=== PATIENT | female | born 1930 | race Caucasian/White ===

== ENCOUNTER → 2018-07-28 | Outpatient (CLI) | payer MEDICARE, OTHER ==
[~2018-07-28] MED LIST: ASPIRIN325; BYSTOLIC10 MG PO; CHLORDIAZEPOXI1 EAC1 PO; FISH OIL 1,0001 EAC5 PO; NORVASC 5 MG TAB5 MG PO; PERCOCET 5-3251 EACH PO; PREDNISONE 10 M10 MG PO; PRILOSEC 20 MG20 MG PO; ULTRACET TABLET1 TAB PO; VITAMINC500 PO
== END ==
LOC: M.RAD 10:11
DX: Z12.31 Encounter for screening mammogram for malignant neoplasm of breast (principal)

== ENCOUNTER 2020-05-21 12:30 | Inpatient (IN) | payer OTHER ==
[~2020-05-21] VITALS: Ht 162.6 cm; Wt 78.9 kg
[2020-05-21] VITALS (14 sets, daily range): BP systolic 128–189; BP diastolic 72–90
[~2020-05-21 12:30] MED LIST changes: -ASPIRIN325; +ASPIRIN325 PO; -NORVASC 5 MG TAB5 MG PO; +NORVASC5 MG PO; -PRILOSEC 20 MG20 MG PO; +PRILOSEC OTC20 MG PO
[2020-05-21 12:59] LABS: ABSOLUTE BASOPHILS 0.1 thou/uL (0.0-0.2); ABSOLUTE EOSINOPHILS 0.4 thou/uL (0.0-0.7); ABSOLUTE LYMPHOCYTES 1.3 thou/uL (0.8-5.3); ABSOLUTE MONOCYTES 0.7 thou/uL (0.0-1.2); ABSOLUTE NEUTROPHILS 5.8 thou/uL (1.6-8.1); BASOPHILS 1.1 %; EOSINOPHILS 5.2 %; HEMATOCRIT 40.8 % (37.0-47.0); HEMOGLOBIN 13.1 gm/dL (12.0-15.0); LYMPHOCYTES 16.1 %; MCH 26.5 pg (26.0-34.0); MCHC 32.2 g/dL (28.0-37.0); MCV 82.4 fL (80.0-100.0); MONOCYTES 8.1 %; MPV 8.2 fl. (7.2-11.1); NUCLEATED RBCS 0 /100WBC; PLATELET COUNT* 237 thou/uL (150-400); POLYS 69.5 %; RBC 4.95 mil/uL (4.20-5.00); RDW-CV 15.2 % (10.5-14.5); WBC 8.4 thou/uL (4.0-11.0)
[2020-05-21 13:08] LABS: CREATININE 0.8 mg/dL (0.6-1.3); POTASSIUM 3.3 mmol/L (3.5-5.1)
[2020-05-21 13:10] LABS: APTT 22.6 Seconds (25.0-31.3); PROTIME 10.7 Seconds (9.20-11.50)
[2020-05-21 13:21] LABS: ALBUMIN 3.7 g/dL (3.4-5.0); MAGNESIUM 1.8 mg/dL (1.8-2.4); TOTAL BILIRUBIN 0.6 mg/dL (<0.1-1.0); TOTAL PROTEIN 7.5 g/dL (6.4-8.2)
--- NOTE | 2020-05-21 18:18 | CARD ---
[address] [address] CARDIAC CATH REPORT Name: DANNY COURTNEY Room: [address] IN [facility]#: [id number] Admission: 05/21/20 Attend Phys: Jovan Duran MD, Discharge: Date of : 32 Report #: [id number] THIS REPORT FOR: //name// cc: Eve Mcallister Tonja K FNP ~ APPROVED REPORT Study performed: 05/21/2020 13:26:49 Patient Details Patient Status: ED Room #: The patient is a 89 year-old female Event Personnel Jovan Duran Ink Jet Operator, Nadya Cruz RN, Randal Jorge RTR Monitor, Chun Alarcon HAND TOOL FILER Scrub Procedures Performed Left Heart Cath w/or w/o Coronaries [id number] [facility] ANNI Place w/wo Plasty Single LAD [id number] Hemostasis w/ Angioseal; defibrillation x3 Indication STEMI Risk Factors Hypercholesterolemia, Hypertension Admission/Lab Medications/Medications given during procedure Lidocaine Subcut 20 ml, Angiomax IV 11 ml, Angiomax IV 26 ml per hr, Adenosine IC 150 mcg, Adenosine IC 200 mcg, Fentanyl IV 25 mcg, Aggrastat Unknown 7.5 ml, Aggrastat Unknown 7.5 ml, Ticagrelor PO 180 mg, Aspirin PO 162 mg Procedure Narrative The patient was brought emergently to the Cardiac Catheterization Laboratory and was prepped and draped in a sterile manner. The right femoral was infiltrated with 2% Lidocaine subcutaneous anesthesia. A [place] 6 FR sheath was inserted into the right femoral artery. Coronary angiography was performed using coronary diagnostic catheters. The right coronary system was accessed and visualized with a Diagnostic JR4 6Fr catheter. The left coronary system was accessed and visualized with a Diagnostic JL4 6Fr catheter. The left ventricle was accessed and visualized with a Diagnostic Straight Pigtail 6[address] [place] [address] CARDIAC CATH REPORT Name: DANNY COURTNEY Room: [address]#: [id number] Admission: 05/21/20 Attend Phys: Jovan Duran MD, Discharge: Date of : 32 Report #: [id number] catheter. Closure device was deployed with a 6 Fr Angioseal. The patient tolerated the procedure well and there were no complications associated with the procedure. There was no hematoma. Intraoperative Conscious Sedation Sedation start time: 1339 Case end Time: 1456 Fentanyl 25 mcg Fluoro Time: 16.5 minutes Dose: DAP 496709 cGycm2 1796.68 mGy Contrast Type and Amount: Visipaque 360 ml Diagnostic Cath Left Main 30% distal narrowing LAD 40% mid vessel narrowing followed by 100% occlusion of the mid LAD with prominent intraluminal thrombus Circumflex 60% tubular proximal circumflex narrowing with 50% mid first marginal narrowing Right Coronary Large dominant vessel with 40% mid vessel narrowing Left Ventriculography Left Ventriculography was not performed. Hemodynamics The aortic pressure is 157/66 mmHg with a mean of 109 mmHg. The left ventricular pressure is 159/12 mmHg with a mean of mmHg. The left ventricular end diastolic pressure is 25 mmHg. There was no gradient across the aortic valve upon pullback. PCI Technique Lesion Anticoagulation was achieved with Angiomax. Percutaneous coronary intervention was performed on the mid left anterior descending artery segment. The lesion stenosis prior to intervention was 100% with ANNE 0 flow. A 6FR XB 3.5 100CM Guide Catheter was used to engage the Left ostium. A IG: ProwaterFlex 180CM Interventional Guidewire was used to cross the lesion. BALLOON DILATION A Balloon catheter Trek RX 2.25 X 12 was inserted and inflated up to 12.00atm for 11seconds. Additional Inflation: 12.00atm for 8seconds. Additional Inflation: 14.00atm for 6seconds. STENT DEPLOYMENT A drug-eluting stent Radhames RX Stent [id number] was inserted and inflated up to 14.00atm [place] 17seconds. [place] [address] CARDIAC CATH REPORT Name: DANNY COURTNEY Room: [address] IN ..#: [id number] Admission: 05/21/20 Attend Phys: Jovan Duran MD, Discharge: Date of : 32 Report #: [id number] COMMENTS Because of protracted no reflow, microcatheter was placed distally with multiple infusion of 200 mcg of adenosine sequentially until ANNE II-III flow was was restored to the distal circulation. The patient developed ventricular fibrillation on 3 acquired occasions requiring defibrillation with 300 W seconds returning the patient to a sinus rhythm which was maintained after 150 milligrams of amiodarone was infused. Conclusion 1. Acute anterior wall ST segment elevation myocardial infarction 2. Severe coronary artery disease characterized by the following: A 100% mid LAD occlusion with prominent intraluminal thrombus B 30% distal left main coronary narrowing C 60% tubular proximal circumflex narrowing with 50% first marginal narrowing D large dominant right coronary with 40% mid vessel narrowing 2. Moderately severe elevation of left ventricular end diastolic pressure at rest 3. Successful PCI with deployment of a drug-eluting stent at the site of 100% mid LAD occlusion with ANNE II-III flow restored to the distal circulation after multiple boluses of 200 mcg of adenosine through a distally placed microcatheter 4. Successful defibrillation on 3 occasions with 300 W seconds administered with the rhythm reverting from ventricular fibrillation to sinus which was maintained after a bolus of amiodarone 150 mg Recommendations Cardiac Risk Reduction Program Aggressive Medical Therapy Medications Administered Aspirin (any) [place] [address] CARDIAC CATH REPORT Name: DANNY COURTNEY Room: [address] IN ..#: [id number] Admission: 05/21/20 Attend Phys: Jovan Duran MD, Discharge: Date of : 32 Report #: [id number] Diagnostic Cath Approved by: Jovan Duran MD Date/Time: 05/21/2020 18:14:51 <ELECTRONICALLY SIGNED> By: Jovan Duran MD, [facility] 05/21/201817 17 17Jojustin Duran MD, FAC /INF
[2020-05-22] VITALS (18 sets, daily range): BP systolic 133–160; BP diastolic 67–86
[2020-05-22 04:20] LABS: HEMATOCRIT 34.5 % (37.0-47.0); HEMOGLOBIN 11.4 gm/dL (12.0-15.0); MCH 26.4 pg (26.0-34.0); MCV 79.9 fL (80.0-100.0); MPV 8.4 fl. (7.2-11.1); RBC 4.32 mil/uL (4.20-5.00); RDW-CV 14.7 % (10.5-14.5); WBC 11.7 thou/uL (4.0-11.0)
[2020-05-22 04:40] LABS: ALBUMIN 3.2 g/dL (3.4-5.0); ALKALINE PHOSPHATASE 103 U/L (46-116); ANION GAP 10 mmol/L (7-16); BUN 6 mg/dL (7-18); CALCIUM 8.2 mg/dL (8.5-10.1); CHLORIDE 101 mmol/L (98-107); CO2 25 mmol/L (21-32); CREATININE 0.6 mg/dL (0.6-1.3); GLUCOSE 115 mg/dL (70-99); POTASSIUM 3.2 mmol/L (3.5-5.1); SGOT 177 U/L (15-37); SGPT 30 U/L (30-65); SODIUM 136 mmol/L (136-145); TOTAL BILIRUBIN 0.9 mg/dL (<0.1-1.0); TOTAL PROTEIN 6.5 g/dL (6.4-8.2)
[2020-05-22 04:51] LABS: SERUM ASSESSMENT Clear
[2020-05-22 05:02] LABS: CHOLESTEROL 169 mg/dL (<200); HDL CHOLESTEROL 52 mg/dL (>40); LDL CHOLESTEROL 101 mg/dL (<100); TC:HDL 3.3 Ratio (Not establshd); TRIGLYCERIDE 82 mg/dL (<150); VLDL 16 mg/dL (<40)
--- NOTE | 2020-05-22 09:05 | EKG ---
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1930 Requested By: Dung Keller Order Number: [id number] MD: Darron Wood Measurements Intervals [place] Rate: 74 P: 40 [place]: 155 QRS: -25 QRSD: 91 T: 110 QT: 410 QTc: 455 Interpretive Statements Sinus rhythm LVH with secondary repolarization abnormality Inferior infarct, acute (RCA) Anterior infarct, acute Lateral leads are also involved Probable RV involvement, suggest recording right precordial leads Baseline wander in lead(s) I,V2 No previous ECG available for comparison Electronically Signed On 05-22-2020 9:05:31 CLAIMS ADJUDICATOR by Darron Wood [email or web address] <ELECTRONICALLY SIGNED> By: Gary Wood MD, [facility] 05/22/20 0905 40 40 Gary Wood MD, [facility] /EPI
--- NOTE | 2020-05-22 14:53 | 2DMMODE ---
[place] [address] 2 D/M-MODE ECHOCARDIOGRAM Name: DANNY COURTNEY Room: [address] [facility]#: [id number] Admission: 05/21/20 Attend Phys: Slick Andujar Discharge: Date of : 32 Date of Service: 05/22/20 1453 Report #: [id number] THIS REPORT FOR: cc: Eve Mcallister Tonja K FNP Holkins, John M. MD [facility] ~ APPROVED REPORT Study performed: 05/22/2020 10:22:59 EXAM: Comprehensive 2D, Doppler, and color-flow Echocardiogram Patient Location: In-Patient Room #: 007 Status: routine BSA: 1.90 HR: 67 bpm BP: 140/76 mmHg Rhythm: NSR Other Information Study Quality: Good Indications Chest Pain 2D Dimensions IVSd: 12.43 (7-11mm) LVOT Diam: 20.54 (18-24mm) LVDd: 46.62 mm PWd: 10.53 (7-11mm) Ascending Ao: 33.85 (22-36mm) LVDs: 31.68 (25-40mm) Aortic Root: 37.64 mm Volumes Left Atrial Volume (Systole) LA ESV Index: 27.70 mL/m2 Aortic Valve AoV Peak Ajit.: 1.15 m/s AO Peak Gr.: 5.28 mmHg LVOT Max P.33 mmHg AO Mean Gr.: 3.17 mmHg LVOT Mean P.17 mmHg LVOT Max V: 0.76 m/s AO V2 VTI: 23.78 cm LVOT Mean V: 0.50 m/s COSTA (VTI): 2.15 cm2 LVOT V1 VTI: 15.41 [place] [address] 2 D/M-MODE ECHOCARDIOGRAM Name: DANNY COURTNEY Room: [address] IN [facility].#: [id number] Admission: 05/21/20 Attend Phys: Slick Andujar Discharge: Date of : 32 Date of Service: 05/22/20 1453 Report #: [id number] Mitral Valve E/A Ratio: 0.59 MV Decel. Time: 263.14 ms MV E Max Ajit.: 0.49 m/s MV PHT: 76.31 ms MVA (PHT): 2.88 cm2 TDI E/Lateral E': 12.25 E/Medial E': 9.80 Medial E' Ajit.: 0.05 m/s Lateral E' Ajit.: 0.04 m/s Pulmonary Valve PV Peak Ajit.: 0.71 m/s PV Peak Gr.: 1.99 mmHg Tricuspid Valve RAP Estimate: 5.00 mmHg TR Peak Gr.: 21.27 mmHg RVSP: 26.00 mmHg PA Pressure: 26.00 mmHg Left Ventricle The left ventricle is normal size. Regional wall motion abnormalities are noted with distal septal and apical hypo-akinesis. There is normal left ventricular wall thickness. Left ventricular systolic function is mildly decreased. LVEF is 45%. Grade I - abnormal relaxation pattern. Right Ventricle The right ventricle is normal size. The right ventricular systolic function is normal. Atria The left atrium size is normal. The right atrium size is normal. Aortic Valve Mild aortic valve sclerosis. Trace aortic regurgitation. There is no aortic valvular stenosis. Mitral Valve The mitral valve is normal in structure. Trace mitral regurgitation. No evidence of mitral valve stenosis. Tricuspid Valve The tricuspid valve is normal in structure. Mild [place] [address] 2 D/M-MODE ECHOCARDIOGRAM Name: DANNY COURTNEY Room: [address] [place] [facility]#: [id number] Admission: 05/21/20 Attend Phys: Slick Andujar Discharge: Date of : 32 Date of Service: 05/22/20 1453 Report #: [id number] Pulmonic Valve The pulmonary valve is normal in structure. Mild pulmonic regurgitation. Great Vessels The aortic root is normal in size. IVC is normal in size and collapses >50% with inspiration. Pericardium There is no pericardial effusion. <Conclusion> The left ventricle is normal size. There is normal left ventricular wall thickness. Left ventricular systolic function is mildly decreased. LVEF is 45%. Grade I - abnormal relaxation pattern. The right ventricle is normal size. The left atrium size is normal. Mild aortic valve sclerosis. Trace aortic regurgitation. There is no aortic valvular stenosis. The mitral valve is normal in structure. The tricuspid valve is normal in structure. Mild tricuspid regurgitation. IVC is normal in size and collapses >50% with inspiration. There is no pericardial effusion. Regional wall motion abnormalities are noted with distal septal and apical hypo-akinesis. <ELECTRONICALLY SIGNED> By: Jovan Duran MD, FACC 05/22/20 1453 52 145 Jovan Duran MD, FACC /INF
--- NOTE | 2020-05-22 15:41 | EKG ---
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 : 1930 Requested By: Eduardo Courtney Order Number: [id number] Reading MD: Darron Wood Measurements Intervals [place] Rate: 64 P: 54 [place]: 204 QRS: -23 QRSD: 105 T: 18 QT: 428 QTc: 442 Interpretive Statements Sinus rhythm Inferior infarct, old Consider anterior infarct Baseline wander in lead(s) V1 Compared to ECG 05/21/2020 12:41:19 Left ventricular hypertrophy no longer present Early repolarization no longer present Myocardial infarct finding still present Electronically Signed On 05-22-2020 15:41:31 JACKET PREPARER by Darron Wood [email or web address] <ELECTRONICALLY SIGNED> By: Gary Wood MD, FACC 05/22/20 1541 172 172 Gary Wood MD, FAC /EPI
--- NOTE | 2020-05-22 15:42 | EKG ---
[place] [address] ELECTROCARDIOGRAM REPORT Name: DANNY COURTNEY Room: [address] IN M.R.#: [id number] Admission: 05/21/20 Attend Phys: Slick Andujar Discharge: Date of : 34 Date of Service: 05/21/20 2335 Report #: [id number] THIS REPORT FOR: //name// [facility] Test Date: 2020-05-21 Test Time: 23:35:22 Pat Name: DANNY COURTNEY Department: Room: [facility] Gender: F Red Leader: [place] : 1930 Requested By: Jovan Duran Order Number: [id number] Reading MD: Darron Wood Measurements Intervals [place] Rate: 66 P: 50 [place]: 169 QRS: -18 QRSD: 99 T: 21 QT: 495 QTc: 519 Interpretive Statements Sinus rhythm Inferior infarct, old Prolonged QT interval Compared to ECG 05/21/2020 12:41:19 Prolonged QT interval now present Left ventricular hypertrophy no longer present Early repolarization no longer present Myocardial infarct finding still present Electronically Signed On 05-22-2020 15:41:58 SENIOR LINUX UNIX ENGINEER by Darron Wood [email or web address] <ELECTRONICALLY SIGNED> By: Gary Wood MD, FACC 05/22/20 1541 2335 2335 Gary Wood MD, FACC /EPI
[2020-05-23] VITALS (8 sets, daily range): BP systolic 125–145; BP diastolic 60–77
[2020-05-23 03:59] LABS: ALBUMIN 2.9 g/dL (3.4-5.0); CALCIUM 8.2 mg/dL (8.5-10.1); CREATININE 0.8 mg/dL (0.6-1.3); POTASSIUM 3.4 mmol/L (3.5-5.1); TOTAL PROTEIN 5.9 g/dL (6.4-8.2)
[2020-05-23 04:30] LABS: ABSOLUTE BASOPHILS 0.1 thou/uL (0.0-0.2); ABSOLUTE EOSINOPHILS 0.3 thou/uL (0.0-0.7); ABSOLUTE LYMPHOCYTES 0.7 thou/uL (0.8-5.3); ABSOLUTE MONOCYTES 0.9 thou/uL (0.0-1.2); ABSOLUTE NEUTROPHILS 7.5 thou/uL (1.6-8.1); BASOPHILS 0.6 %; HEMATOCRIT 32.4 % (37.0-47.0); HEMOGLOBIN 10.8 gm/dL (12.0-15.0); LYMPHOCYTES 7.7 %; MCH 26.7 pg (26.0-34.0); MCHC 33.4 g/dL (28.0-37.0); MCV 79.9 fL (80.0-100.0); MONOCYTES 9.4 %; MPV 8.6 fl. (7.2-11.1); NUCLEATED RBCS 0 /100WBC; PLATELET COUNT* 204 thou/uL (150-400); POLYS 79.3 %; RBC 4.06 mil/uL (4.20-5.00); RDW-CV 14.9 % (10.5-14.5); WBC 9.5 thou/uL (4.0-11.0)
[2020-05-23] MEDS ORDERED: LISINOPRIL5 MG PO (11:09)
[2020-05-23] MEDS ORDERED: BRILINTA90 MG PO (11:09)
[2020-05-23] MEDS ORDERED: CARVEDILOL3.125 MG PO (11:09)
[2020-05-23] MEDS ORDERED: ASPIR 8181 MG PO (11:09)
== END 2020-05-23 16:50 | disposition home health service (06) | DRG 246 ==
LOC: M.CL 12:30 → M.ERS 12:30 → M.TBA-CV 16:09 → M.2W 16:09 → M.ICU 16:09 → M.2W 05-22 15:35
PROVIDERS: Family Medicine; Internal Medicine; ADMIT Internal Medicine; ATTEND Internal Medicine
PROC: 4A023N7 Measurement of Cardiac Sampling and Pressure, Left Heart, Percutaneous Approach (ICD-10-PCS; principal; 2020-05-21)
PROC: 027034Z Dilation of Coronary Artery, One Artery with Drug-eluting Intraluminal Device, Percutaneous Approach (ICD-10-PCS; principal; 2020-05-21)
PROC: B211YZZ Fluoroscopy of Multiple Coronary Arteries using Other Contrast (ICD-10-PCS; principal; 2020-05-21)
DX: I21.09 ST elevation (STEMI) myocardial infarction involving other coronary artery of anterior wall (principal); I50.41 Acute combined systolic (congestive) and diastolic (congestive) heart failure; D62 Acute posthemorrhagic anemia; E87.6 Hypokalemia; I25.10 Atherosclerotic heart disease of native coronary artery without angina pectoris; I11.0 Hypertensive heart disease with heart failure; Z20.828 Contact with and (suspected) exposure to other viral communicable diseases; E78.5 Hyperlipidemia, unspecified; M19.90 Unspecified osteoarthritis, unspecified site; Z90.49 Acquired absence of other specified parts of digestive tract; Z90.710 Acquired absence of both cervix and uterus; Z88.8 Allergy status to other drugs, medicaments and biological substances; Z79.82 Long term (current) use of aspirin; Z79.899 Other long term (current) drug therapy

== ENCOUNTER 2020-08-21 13:27 | Inpatient (IN) | payer OTHER ==
[~2020-08-21] VITALS: Ht 170.2 cm; Wt 72.6 kg
[~2020-08-21 13:27] MED LIST changes: +ASPIR 8181 MG PO; +BRILINTA90 MG PO; +CARVEDILOL3.125 MG PO; +LISINOPRIL5 MG PO
[2020-08-21 13:35] VITALS: BP 183/110
[2020-08-21] MEDS ORDERED: VITAMIN D-40010 MCG PO (13:42)
[2020-08-21 14:04] LABS: ABSOLUTE BASOPHILS 0.1 thou/uL (0.0-0.2); ABSOLUTE EOSINOPHILS 0.3 thou/uL (0.0-0.7); ABSOLUTE LYMPHOCYTES 0.8 thou/uL (0.8-5.3); ABSOLUTE MONOCYTES 0.5 thou/uL (0.0-1.2); ABSOLUTE NEUTROPHILS 6.4 thou/uL (1.6-8.1); BASOPHILS 1.1 %; EOSINOPHILS 3.5 %; HEMATOCRIT 34.8 % (37.0-47.0); HEMOGLOBIN 11.3 gm/dL (12.0-15.0); LYMPHOCYTES 9.5 %; MCH 25.9 pg (26.0-34.0); MCHC 32.5 g/dL (28.0-37.0); MCV 79.7 fL (80.0-100.0); MONOCYTES 6.7 %; MPV 8.5 fl. (7.2-11.1); NUCLEATED RBCS 0 /100WBC; PLATELET COUNT* 237 thou/uL (150-400); POLYS 79.2 %; RBC 4.37 mil/uL (4.20-5.00); RDW-CV 16.3 % (10.5-14.5); WBC 8.1 thou/uL (4.0-11.0)
[2020-08-21 14:09] LABS: CREATININE 0.8 mg/dL (0.6-1.3); POTASSIUM 3.5 mmol/L (3.5-5.1)
[2020-08-21 14:18] LABS: ALBUMIN 3.8 g/dL (3.4-5.0); DIRECT BILIRUBIN 0.3 mg/dL (<0.1-0.3); MAGNESIUM 1.8 mg/dL (1.8-2.4); PHOSPHORUS* 3.5 mg/dL (2.5-4.9); TOTAL BILIRUBIN 1.1 mg/dL (<0.1-1.0); TOTAL PROTEIN 7.4 g/dL (6.4-8.2)
[2020-08-21 14:59] LABS: BE -2.7 mmol/L (-2 to +3); PCO2 31.4 mmHg (35.0-45.0); PO2 111.1 mmHg (75.0-100.0); pH 7.437 (7.340-7.450)
[2020-08-21 15:59] LABS: URINE BILIRUBIN NEGATIVE (Negative); URINE BLOOD NEGATIVE (Negative); URINE CLARITY CLEAR; URINE COLOR YELLOW; URINE GLUCOSE-RANDOM NEGATIVE (Negative); URINE KETONES 1+ (Negative); URINE LEUKOCYTES NEGATIVE (Negative); URINE NITRITE NEGATIVE (Negative); URINE PROTEIN NEGATIVE (Negative); URINE SPECIFIC GRAVITY 1.025 (1.005-1.030)
--- NOTE | 2020-08-21 16:47 | 2DMMODE ---
[place] [address] 2 D/M-MODE ECHOCARDIOGRAM Name: DANNY COURTNEY Room: [place] [address] ADM IN .R.#: [id number] Admission: 08/21/20 Attend Phys: Marlen Abreu, Discharge: Date of : 34 Date of Service: 08/21/20 1646 Report #: [id number] THIS REPORT FOR: cc: Eve Mcallister Tonja K FNP Liston, Michael J. MD [facility] ~ APPROVED REPORT Study performed: 08/21/2020 15:54:45 EXAM: Limited 2D, Doppler, and color-flow Echocardiogram Patient Location: In-Patient Room #: ER Status: routine BSA: 1.84 HR: 98 bpm BP: 172/97 mmHg Rhythm: NSR Other Information Study Quality: Good Indications Dyspnea Tricuspid Valve RAP Estimate: 5.00 mmHg TR Peak Gr.: 41.00 mmHg RVSP: 46.00 mmHg PA Pressure: 46.00 mmHg Left Ventricle Left ventricle is mildly dilated. There is mild global hypokinesis with akinesis of the apex and mid to apical portions of the anterior and anteroseptal ji. Mild concentric left ventricular hypertrophy. Left ventricular systolic function is moderately decreased. LVEF is 30-35%. Right Ventricle The right ventricle is normal size. The right ventricular systolic function is normal. Atria The left atrium size is normal. The right atrium [place] [address] 2 D/M-MODE ECHOCARDIOGRAM Name: ROBBIE COURTNEYCYNTHIA Ocampo Room: [address] IN .R.#: [id number] Admission: 08/21/20 Attend Phys: Marlen Abreu, Discharge: Date of : 32 Date of Service: 08/21/20 1646 Report #: [id number] Aortic Valve The aortic valve is normal in structure. No aortic regurgitation is present. Mitral Valve The mitral valve is normal in structure. Mild mitral regurgitation. Tricuspid Valve The tricuspid valve is normal in structure. Trace tricuspid regurgitation. Moderate pulmonary hypertension. Pulmonic Valve The pulmonary valve is normal in structure. Great Vessels The aortic root is normal in size. IVC is normal in size and collapses >50% with inspiration. Pericardium There is no pericardial effusion. Left pleural effusion. <Conclusion> Left ventricle is mildly dilated. Mild concentric left ventricular hypertrophy. Left ventricular systolic function is moderately decreased. LVEF is 30-35%. There is mild global hypokinesis with akinesis of the apex and mid to apical portions of the anterior and anteroseptal ji. Mild mitral regurgitation. Trace tricuspid regurgitation. Moderate pulmonary hypertension. Left pleural effusion. IVC is normal in size and collapses >50% with inspiration. <ELECTRONICALLY SIGNED> By: Sahil Robertson MD, FACC 08/21/201645 45 45 Sahil Robertson MD, FACC /INF
--- NOTE | 2020-08-21 17:43 | EKG ---
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: : 1930 Requested By: Jamey Darnell Order Number: [id number] MD: Sahil Robertson Measurements Intervals [place] Rate: 98 P: 44 [place]: 133 QRS: -3 QRSD: 107 T: 114 QT: 362 QTc: 463 Interpretive Statements Wandering atrial pacemaker Nonspecific T wave inversion diffusely Compared to ECG 05/21/2020 23:35:22 Myocardial infarct finding no longer present Prolonged QT interval no longer present Electronically Signed On 08-21-2020 17:43:48 CYANIDE CASE HARDENER by Sahil Robertson [email or web address] <ELECTRONICALLY SIGNED> By: Sahil Robertson MD, FACC 08/21/20 1743 1344 1344 Sahil Robertson MD, FACC /EPI
[2020-08-21 18:00] VITALS: BP 107/75
[2020-08-22 04:00] VITALS: BP 142/76
[2020-08-22 08:00] VITALS: BP 150/87
[2020-08-22 09:14] LABS: CREATININE 0.8 mg/dL (0.6-1.3); POTASSIUM 3.6 mmol/L (3.5-5.1)
[2020-08-22 12:27] VITALS: BP 128/77
[2020-08-22 20:00] VITALS: BP 147/77
[2020-08-23 00:50] VITALS: BP 123/68
[2020-08-23 04:00] VITALS: BP 142/70
[2020-08-23 04:26] LABS: HEMATOCRIT 32.6 % (37.0-47.0); HEMOGLOBIN 10.6 gm/dL (12.0-15.0); MCH 26.1 pg (26.0-34.0); MCHC 32.4 g/dL (28.0-37.0); MCV 80.6 fL (80.0-100.0); MPV 8.8 fl. (7.2-11.1); RBC 4.05 mil/uL (4.20-5.00); RDW-CV 16.4 % (10.5-14.5); WBC 7.6 thou/uL (4.0-11.0)
[2020-08-23 04:41] LABS: CALCIUM 9.1 mg/dL (8.5-10.1); POTASSIUM 3.8 mmol/L (3.5-5.1)
[2020-08-23 08:00] VITALS: BP 145/75
[2020-08-23 11:50] VITALS: BP 90/52
[2020-08-23 16:00] VITALS: BP 111/69
[2020-08-23 19:50] VITALS: BP 124/63
[2020-08-24] VITALS: BP 120/60
[2020-08-24 04:00] VITALS: BP 125/66
[2020-08-24 04:41] LABS: HEMATOCRIT 31.9 % (37.0-47.0); HEMOGLOBIN 10.4 gm/dL (12.0-15.0); MCH 26.2 pg (26.0-34.0); MCHC 32.7 g/dL (28.0-37.0); MCV 80.2 fL (80.0-100.0); MPV 8.8 fl. (7.2-11.1); RBC 3.98 mil/uL (4.20-5.00); RDW-CV 16.2 % (10.5-14.5); WBC 7.9 thou/uL (4.0-11.0)
[2020-08-24 05:12] LABS: CALCIUM 9.2 mg/dL (8.5-10.1); CREATININE 1.5 mg/dL (0.6-1.3); POTASSIUM 4.1 mmol/L (3.5-5.1)
[2020-08-24 08:00] VITALS: BP 127/74
[2020-08-24] MEDS ORDERED: CARVEDILOL12.5 MG PO (09:00)
[2020-08-24] MEDS ORDERED: COZAAR 50 MG TA50 M1 PO (09:00)
[2020-08-24 11:46] VITALS: BP 127/74
[2020-08-24] MEDS ORDERED: KLOR-CON M2020 MEQ PO (12:47)
[2020-08-24] MEDS ORDERED: FUROSEMIDE 40 M40 MG PO (12:47)
[2020-08-24 15:29] VITALS: BP 127/74
== END 2020-08-24 13:50 | disposition home or self-care (01) | DRG 292 ==
LOC: M.ERS 13:27 → M.TBA-ER 15:28 → M.2W 15:28
PROVIDERS: Emergency Medicine; Family Medicine; Internal Medicine; Registered Nurse; ADMIT Internal Medicine; ATTEND Internal Medicine
DX: I11.0 Hypertensive heart disease with heart failure (principal); N17.9 Acute kidney failure, unspecified; E86.0 Dehydration; I50.43 Acute on chronic combined systolic (congestive) and diastolic (congestive) heart failure; I25.5 Ischemic cardiomyopathy; Z20.822 Contact with and (suspected) exposure to COVID-19; I25.10 Atherosclerotic heart disease of native coronary artery without angina pectoris; T50.905A Adverse effect of unspecified drugs, medicaments and biological substances, initial encounter; E78.5 Hyperlipidemia, unspecified; M19.90 Unspecified osteoarthritis, unspecified site; Z90.49 Acquired absence of other specified parts of digestive tract; Z90.710 Acquired absence of both cervix and uterus; Z98.49 Cataract extraction status, unspecified eye; Z88.6 Allergy status to analgesic agent; Z88.8 Allergy status to other drugs, medicaments and biological substances; I25.2 Old myocardial infarction; Z95.5 Presence of coronary angioplasty implant and graft; Z79.82 Long term (current) use of aspirin; Z79.899 Other long term (current) drug therapy; Y92.89 Other specified places as the place of occurrence of the external cause

== ENCOUNTER → 2020-09-24 | Outpatient (CLI) | payer OTHER ==
[~2020-09-24] MED LIST changes: +CARVEDILOL12.5 MG PO; +COZAAR 50 MG TA50 M1 PO; +FUROSEMIDE 40 M40 MG PO; +KLOR-CON M2020 MEQ PO; +VITAMIN D-40010 MCG PO
--- NOTE | 2020-09-24 11:25 | 2DMMODE ---
[place] [address] 2 D/M-MODE ECHOCARDIOGRAM Name: DANNY COURTNEY Terrence Room: [facility]#: [id number] Admission: 09/24/20 Attend Phys: Terrence Leija Discharge: Date of : 34 Date of Service: 09/24/20 1125 Report #: [id number] THIS REPORT FOR: cc: Eve Mcallister Tonja K FNP Blick, David R. MD [facility] ~ APPROVED REPORT Study performed: 09/24/2020 09:42:09 EXAM: Comprehensive 2D, Doppler, and color-flow Echocardiogram Patient Location: Out-Patient BSA: 1.80 HR: 68 bpm BP: 130/70 mmHg Other Information Study Quality: Fair Indications CAD Cardiomyopathy Hypertension/HDD 2D Dimensions IVSd: 14.23 (7-11mm) LVOT Diam: 20.34 (18-24mm) LVDd: 31.54 mm PWd: 11.70 (7-11mm) Ascending Ao: 32.10 (22-36mm) LVDs: 24.71 (25-40mm) Aortic Root: 28.88 mm Volumes Left Atrial Volume (Systole) LA ESV Index: 17.50 mL/m2 Aortic Valve AoV Peak Ajit.: 0.78 m/s AO Peak Gr.: 2.45 mmHg LVOT Max P.02 mmHg AO Mean Gr.: 1.56 mmHg LVOT Mean P.96 mmHg LVOT Max V: 0.71 m/s AO V2 VTI: 14.64 cm LVOT Mean V: 0.45 m/s COSTA (VTI): 3.24 cm2 LVOT V1 VTI: 14.57 [place] [address] 2 D/M-MODE ECHOCARDIOGRAM Name: DANNY COURTNEY Room: [facility]#: [id number] Admission: 09/24/20 Attend Phys: Terrence Leija Discharge: Date of : 34 Date of Service: 09/24/20 1125 Report #: [id number] Mitral Valve MV Decel. Time: 302.50 ms MV PHT: 87.73 ms MVA (PHT): 2.51 cm2 TDI Medial E' Ajit.: 0.05 m/s Lateral E' Ajit.: 0.05 m/s Pulmonary Valve PV Peak Ajit.: 0.72 m/s PV Peak Gr.: 2.08 mmHg Left Ventricle The left ventricle is normal size. akinesis of the distal anteroseptal wall and apex Mild concentric left ventricular hypertrophy. Left ventricular ejection fraction is moderately decreased. LVEF is 35-40%. Grade I - abnormal relaxation pattern. Right Ventricle The right ventricle is normal size. The right ventricular systolic function is normal. Atria The left atrium size is normal. The right atrium size is normal. Aortic Valve The aortic valve is normal in structure. Mild aortic regurgitation. There is no aortic valvular stenosis. Mitral Valve The mitral valve is normal in structure. Mild mitral annular calcification. There is trace mitral valve regurgitation noted. No evidence of mitral valve stenosis. Tricuspid Valve The tricuspid valve is normal in structure. There is trace tricuspid valve regurgitation noted. Pulmonic Valve The pulmonary valve is normal in structure. Mild pulmonic regurgitation[place] [address] 2 D/M-MODE ECHOCARDIOGRAM Name: SHERWINDANNY M Room: [facility]#: [id number] Admission: 09/24/20 Attend Phys: Terrence Leija Discharge: Date of : 34 Date of Service: 09/24/20 1125 Report #: [id number] The aortic root is normal in size. IVC is normal in size and collapses >50% with inspiration. Pericardium There is no pericardial effusion. <Conclusion> Mild concentric left ventricular hypertrophy. akinesis of the distal anteroseptal wall and apex LVEF is 35-40%. <ELECTRONICALLY SIGNED> By: Eduardo Courtney MD, [facility] 09/24/20 1125 24 24 Eduardo Cuortney MD, FACC /INF
== END ==
LOC: M.CRD 09:49
PROVIDERS: ATTEND Internal Medicine
DX: I08.8 Other rheumatic multiple valve diseases (principal); I25.10 Atherosclerotic heart disease of native coronary artery without angina pectoris; I10 Essential (primary) hypertension; I25.5 Ischemic cardiomyopathy

== ENCOUNTER → 2021-03-21 | Outpatient (CLI) | payer OTHER ==
--- NOTE | 2021-03-21 15:58 | CARDNUC ---
[place] [address] CARDIAC NUCLEAR IMAGING REPORT Name: DANNY COURTNEY Room: [facility]#: [id number] Admission: 03/21/21 Attend Phys: Terrence Leija Discharge: Date of : 34 Date of Service: 03/21/21 1558 Report #: [id number] THIS REPORT FOR: cc: Eve Mcallister Tonja K FNP [place], Michael J. MD [facility] ~ APPROVED REPORT Imaging Protocol: Rest Tc-99m/Stress Tc-99m 1 day Study performed: 03/21/2021 12:45:00 Indication: Dyspnea Patient Location: Out-Patient Stress Tech: lucía padron Stress Nurse: Kathie Pineda RN NM Tech:ANOOP Saldivar Ht: 5 ft 5 in Wt: 158 lbs BSA: 1.79 m2 BMI: 26.28 Medical History Medical History: CAD s/p UT, CAD s/p stent, CHF, HTN, Hyperlipidemia Medications: asa-81, brilinta, carvedilol, lasix, losartan, ntg Allergies: celecoxib, lipitor,vicoden Cardiac Risk Factors: Age, HTN, Hyperlipidemia Previous Cardiac Procedures: PCI, Myocardial infarction Exercise History: Sedentary Meds Held (24 hrs): carvedilol Resting Data Rest SPECT myocardial perfusion imaging was performed in supine position 30 minutes following the intravenous injection of 9.1 mCi of Tc-99m Sestamibi. Time of rest injection: 1300 Date: 03/21/2021 The images were gated to evaluate regional wall motion and calculate left ventricular ejection fraction. Administration Route: IV Administration Site: Right AC Pharmacologic Stress Pharmacologic stress test was performed by injecting Regadenoson 0.4 mg IV push over 10-15 seconds immediately [place] [address] CARDIAC NUCLEAR IMAGING REPORT Name: DANNY COURTNEY Room: [facility]#: [id number] Admission: 03/21/21 Attend Phys: Terrence Leija Discharge: Date of : 34 Date of Service: 03/21/21 1558 Report #: [id number] injection of 35.6 mCi of Tc-99m Sestamibi. Time of stress injection: 1400 Date: 03/21/2021 Administration Route: IV Administration Site: Right AC Gated Stress SPECT was performed 40 minutes after stress injection. The images were gated to evaluate regional wall motion and calculate left ventricular ejection fraction. Stress only was performed in the Supine position. Stress Test Details Stress Test: Pharmacologic stress testing performed using 0.4 mg of regadenoson per 5 mL given IV over 10 seconds. HR Max Heart Rate (APMHR): 132 bpm Resting HR: 80 bpm Target HR (85% APMHR): 112 bpm Max HR Achieved: 109 bpm % of APMHR: 82 Recovery HR: 102 bpm BP Resting BP: 164/91 mmHg Max BP: 180/91 mmHg Recovery BP: 170/90 mmHg ECG Resting ECG: Sinus Rhythm Stress ECG: Sinus Tachycardia ST Change: None Arrhythmia: None Recovery ECG: Sinus Rhythm Recovery ST Change: None Recovery Arrhythmia: None Clinical Patient tolerated Lexiscan infusion without significant cardiac symptoms. Stress ECG Conclusion Baseline twelve-lead EKG shows sinus rhythm without significant ST segment or T wave abnormality. EKGs obtained during and post Lexiscan infusion show sinus rhythm and sinus tachycardia without significant ST segment or T wave changes when compared to baseline. There were no stress-induced arrhythmias. Study Quality Study: [place] [address] CARDIAC NUCLEAR IMAGING REPORT Name: SHERWINDANNYCYNTHIA MARTIN Room: [facility]#: [id number] Admission: 03/21/21 Attend Phys: Terrence Leija Discharge: Date of : 34 Date of Service: 03/21/21 1558 Report #: [id number] Artifact: No artifact Study Data At rest, the left ventricular ejection fraction was 35%.. Post stress, the left ventricular ejection was 27%.. TID = 106. Perfusion Perfusion images show a fixed apical inferoapical defect consistent with prior infarct. There is a moderate size reversible defect involving the basal inferior wall. Wall Motion There is significant akinesis of the apex. There is hypokinesis of the septum and inferior ji. Global LV systolic function is severely decreased. Nuclear Conclusion ECG Findings: negative for ischemia Clinical Findings: negative for ischemia Nuclear Findings: positive for ischemia Exercise Capacity: not assessed Left Ventricular Function: abnormal Risk Study: high Perfusion images suggest prior apical infarct. Additionally there is evidence of a small reversible defect in the basal portion inferior wall. Global LV systolic function is severely decreased with wall motion abnormalities as outlined above. This is a high risk study. <Conclusion> Baseline twelve-lead EKG shows sinus rhythm without significant ST segment or T wave abnormality. EKGs obtained during and post Lexiscan infusion show sinus rhythm and sinus tachycardia without significant ST segment or T wave changes when compared to baseline. There were no stress-induced arrhythmias. <ELECTRONICALLY SIGNED> By: Sahil Robertson MD, FACC 03/21/21 1558 1558 1558 Sahil Robertson MD, FACC /INF
== END ==
LOC: M.NUC 10-17 14:57
PROVIDERS: ATTEND Internal Medicine
DX: I25.10 Atherosclerotic heart disease of native coronary artery without angina pectoris (principal); I25.2 Old myocardial infarction

== ENCOUNTER 2021-05-02 10:39 | Observation (INO) | payer OTHER ==
[~2021-05-02] VITALS: Ht 170.2 cm; Wt 71.2 kg
[2021-05-02] VITALS (13 sets, daily range): BP systolic 128–156; BP diastolic 62–89
--- NOTE | ~2021-05-02 | H ---
[address] [address] HISTORY AND PHYSICAL Name: DANNY COURTNEY Room: [address] Lina Alexis#: [id number] Admission: 05/02/21 Attend Phys: Jovan Duran MD, Discharge: 05/03/21 Date of : 34 Report #: [id number] THIS REPORT FOR: cc: Eve Mcallister Tonja K FNP [facility],Medical Records Staff ~ Please refer to the History and Physical performed in the physician's office. By: 0845Medical Records Staff [facility] /[place]
[2021-05-02 12:13] LABS: HEMATOCRIT 35.8 % (37.0-47.0); HEMOGLOBIN 11.9 gm/dL (12.0-15.0); MCH 27.4 pg (26.0-34.0); MCHC 33.1 g/dL (28.0-37.0); MCV 82.7 fL (80.0-100.0); MPV 8.2 fl. (7.2-11.1); RBC 4.34 mil/uL (4.20-5.00); RDW-CV 14.7 % (10.5-14.5)
[2021-05-02 12:26] LABS: APTT 24.3 Seconds (25.0-31.3); PROTIME 10.5 Seconds (9.20-11.50)
[2021-05-02 12:27] LABS: ANION GAP 9 mmol/L (7-16); BUN 25 mg/dL (7-18); CALCIUM 9.2 mg/dL (8.5-10.1); CHLORIDE 107 mmol/L (98-107); CO2 27 mmol/L (21-32); CREATININE 1.1 mg/dL (0.6-1.3); GLUCOSE 106 mg/dL (70-99); POTASSIUM 4.2 mmol/L (3.5-5.1); SODIUM 143 mmol/L (136-145)
[2021-05-02 12:32] LABS: ALBUMIN 3.9 g/dL (3.4-5.0); ALKALINE PHOSPHATASE 98 U/L (46-116); SGOT 12 U/L (15-37); SGPT 18 U/L (30-65); TOTAL BILIRUBIN 0.6 mg/dL (<0.1-1.0); TOTAL PROTEIN 7.7 g/dL (6.4-8.2)
[2021-05-02 12:47] LABS: CHOLESTEROL 185 mg/dL (<200); HDL CHOLESTEROL 72 mg/dL (>40); LDL CHOLESTEROL 93 mg/dL (<100); TC:HDL 2.6 Ratio (Not establshd); TRIGLYCERIDE 103 mg/dL (<150); VLDL 21 mg/dL (<40)
[2021-05-02 12:49] LABS: SERUM ASSESSMENT Clear
[2021-05-02] MEDS ORDERED: FUROSEMIDE 40 M40 MG PO (16:32)
[2021-05-02] MEDS ORDERED: KLOR-CON M2020 MEQ PO (16:33)
[2021-05-03] VITALS (7 sets, daily range): BP systolic 124–145; BP diastolic 55–72
[2021-05-03 04:09] LABS: HEMATOCRIT 31.7 % (37.0-47.0); HEMOGLOBIN 10.5 gm/dL (12.0-15.0); MCH 27.4 pg (26.0-34.0); MCHC 33.1 g/dL (28.0-37.0); MCV 82.7 fL (80.0-100.0); MPV 8.4 fl. (7.2-11.1); RBC 3.83 mil/uL (4.20-5.00); RDW-CV 14.8 % (10.5-14.5); WBC 7.7 thou/uL (4.0-11.0)
[2021-05-03 04:35] LABS: ALBUMIN 3.1 g/dL (3.4-5.0); CALCIUM 8.7 mg/dL (8.5-10.1); POTASSIUM 3.9 mmol/L (3.5-5.1); TOTAL BILIRUBIN 0.7 mg/dL (<0.1-1.0); TOTAL PROTEIN 6.3 g/dL (6.4-8.2)
[2021-05-03] MEDS ORDERED: NITROGLYCERIN0.4 MG SUBLING (09:20)
--- NOTE | 2021-05-03 17:27 | EKG ---
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1930 Requested By: Sahil Robertson Order Number: [id number] Reading MD: Sahil Robertson Measurements Intervals [place] Rate: 84 P: 52 [place]: 137 QRS: -23 QRSD: 108 T: 129 QT: 381 QTc: 451 Interpretive Statements Sinus rhythm LVH with secondary repolarization abnormality Inferior infarct, old Compared to ECG 08/21/2020 13:44:32 Left ventricular hypertrophy now present Early repolarization now present Myocardial infarct finding now present Electronically Signed On 05-03-2021 17:27:39 CDT by Sahil Robertson [email or web address] <ELECTRONICALLY SIGNED> By: Sahil Robertson MD, FACC 05/03/21 1727 9 9 Sahil Robertson MD, FACC /EPI
--- NOTE | 2021-05-03 17:45 | D ---
[address] [address] DISCHARGE SUMMARY Name: DANNY COURTNEY Room: [address] Lina Alexis#: [id number] Admission: 05/02/21 Attend Phys: Jovan Duran MD, Discharge: 05/03/21 Date of : 32 Report #: [id number] THIS REPORT FOR: cc: Eve Mcallister Tonja K FNP [place]on, Michael J. MD [facility] ~ cc: Jovan Duran MD [facility], Eve Mcallister DISCHARGE DIAGNOSES: 1. Unstable angina. 2. Coronary artery disease with previous intervention. 3. Ischemic cardiomyopathy. 4. Essential hypertension. PROCEDURES DURING HOSPITALIZATION: 1. Left heart catheterization. 2. Coronary angiography. 3. Left ventriculography. 4. Percutaneous coronary intervention with drug-eluting stent placement to the mid right coronary arteries. HOSPITAL COURSE: The patient was brought to the hospital after having abnormal outpatient stress test suggesting inferobasilar ischemia. The patient had a history of coronary artery disease with previous drug-eluting stent placement to the mid LAD in the setting of acute anterior wall myocardial infarction. Stress testing suggested apical infarct. In addition, some basal inferior wall ischemia. On catheterization, the patient was found to have high-grade stenosis in the calcified mid right coronary artery. The patient underwent drug-eluting stent placement to the mid LAD without complication. The patient had a 3.25 x 15 mm stent placed, postdilated to approximately 3.7 mm. The patient was noted to have a step up at the margin of the stent, so an additional 8 mm 3.25 stent was placed and again postdilated to approximately 3.7 mm. At the termination of the procedure, the area was free of any significant stenosis. The patient tolerated the procedure well without complication. Ventriculography showed apical akinesis with an EF of approximately 35-40%. The stents placed in the LAD previously were widely patent. No other occlusive disease was found. DISCHARGE MEDICATIONS: Will include aspirin 81 mg daily, carvedilol 12.5 mg b.i.d., vitamin D 1000 units daily, fish oil 1000 mg daily, losartan 50 mg daily, Protonix 40 mg daily, Brilinta 90 mg b.i.d., Lasix 40 mg p.r.n., potassium chloride 20 [place] [address] DISCHARGE SUMMARY Name: DANNY COURTNEY Room: [address]#: [id number] Admission: 05/02/21 Attend Phys: Jovan Duran MD, Discharge: 05/03/21 Date of : 34 Report #: [id number] DISPOSITION: The patient will follow up in the Cardiology office in 4 weeks. <ELECTRONICALLY SIGNED> By: Sahil Robertson MD, [facility] 05/03/21 1745 0811 [id number] Diegoy[facility]elis Robertson MD, FACC /nt
--- NOTE | 2021-05-06 15:53 | CARD ---
[address] [address] CARDIAC CATH REPORT Name: DANNY COURTNEY Room: [address] Lina Alexis#: [id number] Admission: 05/02/21 Attend Phys: Jovan Duran MD, Discharge: 05/03/21 Date of : 32 Report #: [id number] THIS REPORT FOR: cc: Eve Mcallister Tonja K FNP Holkins, John M. MD [facility] ~ APPROVED REPORT Study performed: 05/02/2021 12:12:31 Patient Details Patient Status: Out-Patient Room #: The patient is a 89 year-old female Event Personnel Sahil Robertson Ladderman, Debbie Pruett RN RN, Jossie Hernández Scrub, Gabriella Vizcaino RTR Monitor, Jovan Duran Molding Machine Setter Procedures Performed Art Access - R femoral artery Left Heart Cath w/or w/o Coronaries ANNI Place w/wo Plasty Single RCA Indication Positive stress test Risk Factors Hypercholesterolemia, Coronary Artery Disease Previous Procedures/Diagnoses Previous PCI, Previous NM Admission/Lab Medications/Medications given during procedure Lidocaine Subcut 12 ml, Oxygen Nasal cannula 2 l per min, 0.9% Sodium Chloride IV 100 ml per hr, Angiomax IV 10.5 ml, Angiomax IV 23.87 ml per hr, Ticagrelor PO 90 mg Procedure Narrative The patient was brought electively to the Cardiac Catheterization Laboratory and was prepped and draped in a sterile manner. The right femoral was infiltrated with 2% Lidocaine subcutaneous anesthesia. IV conscious sedation was used throughout procedure with appropriate monitoring and was performed in the [place] [address] CARDIAC CATH REPORT Name: ROBBIE COURTNEYCYNTHIA MARTIN Room: [address] Lina Alexis#: [id number] Admission: 05/02/21 Attend Phys: Jovan Duran MD, Discharge: 05/03/21 Date of : 32 Report #: [id number] who was an independent trained observer other than the physician performing the procedure. A [place] 6 FR sheath was inserted into the right femoral artery. Coronary angiography was performed using coronary diagnostic catheters. The right coronary system was accessed and visualized with a Diagnostic 6 Fr JR 4 catheter. The left coronary system was accessed and visualized with a Diagnostic 6 Fr JL 4 catheter. The left ventricle was accessed and visualized with a Diagnostic 6 Fr Pigtail catheter. Left ventricular/Aortic Valve gradient assessed via catheter pullback. Left ventriculogram was performed in MOELLER projection. Pre-demployment femoral angiogram was performed . Closure device was deployed with a Fr MynxGrip 6/7F. The patient tolerated the procedure well and there were no complications associated with the procedure. There was no hematoma. Intraoperative Conscious Sedation Sedation start time: 1250 Case end Time: 1324 Fentanyl 50 mcg Versed 1 mg Fluoro Time: 7.5 minutes Dose: DAP 13974 cGycm2 1044 mGy Contrast Type and Amount: Visipaque 180 mL Coronary Angiography The patient's coronary anatomy is right dominant. Diagnostic Cath Left Main 0% narrowing LAD 30% proximal LAD narrowing with 50% mid LAD in-stent narrowing and 80% tubular apical LAD stenosis Circumflex Nondominant vessel with 40% proximal narrowing and 80% stenosis of a small subbranch of the distal circumflex Right Coronary Large dominant vessel with 40% proximal and 75% mid vessel stenosis Left Ventriculography The left ventricle is normal in size with Decreased contractility. The left ventricular ejection fraction is estimated to be 40-45%. Left ventricular wall motion abnormalities are present. There is no mitral insufficiency. Apical akinesis is noted on left ventriculography. Hemodynamics The aortic pressure is 152/71 mmHg with a mean of 104 mmHg. The left ventricular pressure is 141/-2 mmHg with [place] [address] CARDIAC CATH REPORT Name: DANNY COURTNEY Room: [address] M.R.#: [id number] Admission: 05/02/21 Attend Phys: Jovan Duran MD, Discharge: 05/03/21 Date of : 32 Report #: [id number] ventricular end diastolic pressure is 25 mmHg. There was no gradient across the aortic valve upon pullback. PCI Technique Lesion Anticoagulation was achieved with Angiomax. Patient was preloaded with Angiomax IV 10.5 ml. Percutaneous coronary intervention was performed on the mid right coronary artery. The lesion stenosis prior to intervention was 75% with ANNE 3 flow. A 6F JR 4.0 Guide Catheter was used to engage the right ostium. A IG: BMW 190cm Interventional Guidewire was used to cross the lesion. BALLOON DILATION A Balloon catheter Trek RX 3.0 X 12 was inserted and inflated up to 12.00atm for 14seconds. Additional Inflation: 18.00atm for 15seconds. STENT DEPLOYMENT A drug-eluting stent Xience Natty 3.5X15mm was inserted and inflated up to 12.00atm for 11seconds. Additional Inflation: 16.00atm for 8seconds. A drug-eluting stent Xience Natty 3.5 x 8mm was inserted and inflated up to 14 RAIZA for 11 seconds, 16 RAIZA for 7 seconds, and 18 RAIZA for 7 seconds. Final angiography reveals 10 % stenosis with ANNE 3 flow. Conclusion 1. Significant multivessel coronary artery disease characterized by the following: A 30% proximal with 50% mid and 80% tubular distal LAD stenosis B nondominant circumflex with 40% proximal narrowing and 80% stenosis of a small subbranch of the distal circumflex C large dominant right coronary artery with 40% proximal and 75% mid vessel stenosis 2 modest impairment in global LV function, estimated ejection fraction being 40-45% with apical akinesis noted 3. Mild systemic systolic hypertension 4. Successful PCI with deployment of sequential drug-eluting stents at the site of 75% mid right coronary artery stenosis with 10% [place] [address] CARDIAC CATH REPORT Name: SHERWINROBBIEDANNYCYNTHIA MARTIN Room: [place] [address] ARASH Alexis#: [id number] Admission: 05/02/21 Attend Phys: Jovan Duran MD, Discharge: 05/03/21 Date of : 32 Report #: [id number] residual narrowing and ANNE-3 flow to the distal vessel Recommendations Cardiac Risk Reduction Program Aggressive Medical Therapy Medications Administered Ticagrelor Diagnostic Cath Approved by: Sahil Robertson MD Date/Time: 05/06/2021 15:52:33 <ELECTRONICALLY SIGNED> By: Jovan Duran MD, [facility] 05/06/21 1553 1553 1553Jovan Duran MD, FACC /INF
== END 2021-05-03 10:50 | disposition home or self-care (01) ==
LOC: M.CL 10:39 → M.TBA-CV 13:19 → M.2W 15:23
PROVIDERS: Internal Medicine Cardiovascular Disease; ADMIT Internal Medicine; ATTEND Internal Medicine
DX: I25.110 Atherosclerotic heart disease of native coronary artery with unstable angina pectoris (principal); Z20.822 Contact with and (suspected) exposure to COVID-19; I25.5 Ischemic cardiomyopathy; I10 Essential (primary) hypertension; Z79.82 Long term (current) use of aspirin; Z79.899 Other long term (current) drug therapy

== ENCOUNTER → 2021-05-08 | Outpatient (CLI) | payer OTHER ==
[~2021-05-08] MED LIST changes: +NITROGLYCERIN0.4 MG SUBLING
== END ==
LOC: M.ULTRA 11:21
PROVIDERS: ATTEND Internal Medicine Cardiovascular Disease
DX: T14.8XXA Other injury of unspecified body region, initial encounter (principal); X58.XXXA Exposure to other specified factors, initial encounter; Y93.89 Activity, other specified; Y92.89 Other specified places as the place of occurrence of the external cause; Y99.8 Other external cause status

== ENCOUNTER 2021-05-19 20:45 | Inpatient (IN) | payer OTHER ==
[~2021-05-19] VITALS: Ht 170.2 cm; Wt 65.8 kg
[2021-05-19 20:50] VITALS: BP 181/124
[2021-05-19 21:31] LABS: HEMATOCRIT 35.3 % (37.0-47.0); HEMOGLOBIN 11.8 gm/dL (12.0-15.0); MCHC 33.4 g/dL (28.0-37.0); MCV 80.9 fL (80.0-100.0); MPV 9.4 fl. (7.2-11.1); NUCLEATED RBCS 0 /100WBC; PLATELET COUNT* 223 thou/uL (150-400); RBC 4.36 mil/uL (4.20-5.00); RDW-CV 14.5 % (10.5-14.5); WBC 5.9 thou/uL (4.0-11.0)
[2021-05-19 21:40] LABS: APTT 26.5 Seconds (25.0-31.3); INR 1.1; PROTIME 10.8 Seconds (9.20-11.50)
[2021-05-19 21:42] LABS: CALCIUM 8.5 mg/dL (8.5-10.1); CREATININE 0.9 mg/dL (0.6-1.3); POTASSIUM 5.1 mmol/L (3.5-5.1)
[2021-05-19 21:58] LABS: ALBUMIN 3.3 g/dL (3.4-5.0); TOTAL BILIRUBIN 1.1 mg/dL (<0.1-1.0); TOTAL PROTEIN 7.7 g/dL (6.4-8.2)
[2021-05-19 22:09] LABS: MAGNESIUM 1.6 mg/dL (1.8-2.4); PHOSPHORUS* 3.3 mg/dL (2.5-4.9)
[2021-05-19] MEDS ORDERED: TESSALON PERLE100 MG PO (22:15)
[2021-05-19] MEDS ORDERED: AZITHROMYCIN500 MG PO (22:15)
[2021-05-19 22:59] LABS: ABSOLUTE LYMPHOCYTES 0.8 thou/uL (0.8-5.3); ABSOLUTE MONOCYTES 0.1 thou/uL (0.0-1.2)
[2021-05-19 23:00] LABS: LARGE PLATELETS RARE; PLATELET ESTIMATE ADEQUATE; POLYCHROMASIA 1+
[2021-05-20] VITALS (35 sets, daily range): BP systolic 116–153; BP diastolic 54–101
[2021-05-20 05:44] LABS: BE -4.2 mmol/L (-2 to +3); PCO2 27.4 mmHg (35.0-45.0); PO2 83.8 mmHg (75.0-100.0)
--- NOTE | 2021-05-20 09:16 | EKG ---
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1930 Requested By: Cassandra Miller Order Number: [id number] MD: Eduardo Courtney Measurements Intervals [place] Rate: 116 P: [place]: QRS: -22 QRSD: 110 T: 110 QT: 301 QTc: 419 Interpretive Statements sinus tachycardia artifact noted Probable anterior infarct, age indeterminate Baseline wander in lead(s) I,III,aVR,aVL,aVF,V1,V2,V4 Compared to ECG 05/03/2021 08:30:01 Sinus rhythm no longer present Left ventricular hypertrophy no longer present Myocardial infarct finding still present Electronically Signed On 05-20-2021 9:16:03 DISHWASHER BUSSER by Eduardo Courtney [email or web address] <ELECTRONICALLY SIGNED> By: Eduardo Courtney MD, [facility] 05/20/21915 56 56 Eduardo Courtney MD, [facility] /EPI
[2021-05-21] VITALS (24 sets, daily range): BP systolic 124–146; BP diastolic 47–107
[2021-05-21 03:49] LABS: CALCIUM 7.8 mg/dL (8.5-10.1); CREATININE 0.7 mg/dL (0.6-1.3)
[2021-05-21 03:52] LABS: POTASSIUM 2.8 mmol/L (3.5-5.1)
[2021-05-21 03:56] LABS: ABSOLUTE LYMPHOCYTES 0.2 thou/uL (0.8-5.3); ABSOLUTE MONOCYTES 0.1 thou/uL (0.0-1.2); ABSOLUTE NEUTROPHILS 1.9 thou/uL (1.6-8.1); BASOPHILS 0.2 %; HEMATOCRIT 33.4 % (37.0-47.0); HEMOGLOBIN 10.9 gm/dL (12.0-15.0); LYMPHOCYTES 10.4 %; MCH 26.5 pg (26.0-34.0); MCHC 32.7 g/dL (28.0-37.0); MCV 80.8 fL (80.0-100.0); MONOCYTES 4.9 %; NUCLEATED RBCS 0 /100WBC; PLATELET COUNT* 163 thou/uL (150-400); POLYS 84.5 %; RBC 4.13 mil/uL (4.20-5.00); RDW-CV 14.4 % (10.5-14.5); WBC 2.2 thou/uL (4.0-11.0)
[2021-05-21 05:12] LABS: MAGNESIUM 2.3 mg/dL (1.8-2.4); PHOSPHORUS* 3.6 mg/dL (2.5-4.9)
--- NOTE | 2021-05-21 09:29 | EKG ---
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1930 Requested By: Cassandra Miller Order Number: [id number] MD: Eduardo Courtney Measurements Intervals [place] Rate: 103 P: 42 MI: 175 QRS: -29 QRSD: 104 T: 146 QT: 313 QTc: 410 Interpretive Statements Sinus tachycardia Multiple ventricular premature complexes Probable left atrial enlargement LVH with secondary repolarization abnormality Inferior infarct, old Probable anterior infarct, age indeterminate Compared to ECG 05/19/2021 20:57:20 Ventricular premature complex(es) now present Left ventricular hypertrophy now present Myocardial infarct finding still present Electronically Signed On 05-21-2021 9:29:18 SCENE AND LIGHTING DESIGN LECTURER by Eduardo Courtney [email or web address] <ELECTRONICALLY SIGNED> By: Eduardo Courtney MD, [facility] 05/21/21928 01 01 Eduardo Courtney MD, [facility] /EPI
[2021-05-21 14:35] LABS: CALCIUM 8.3 mg/dL (8.5-10.1); CREATININE 0.8 mg/dL (0.6-1.3); MAGNESIUM 2.2 mg/dL (1.8-2.4); POTASSIUM 3.7 mmol/L (3.5-5.1)
[2021-05-21 18:39] LABS: BE -1.2 mmol/L (-2 to +3); PCO2 28.1 mmHg (35.0-45.0); PO2 61.5 mmHg (75.0-100.0); pH 7.491 (7.340-7.450)
[2021-05-22] VITALS (19 sets, daily range): BP systolic 95–153; BP diastolic 44–112
[2021-05-22 00:31] LABS: HEMATOCRIT 34.6 % (37.0-47.0); HEMOGLOBIN 11.7 gm/dL (12.0-15.0); MCH 26.7 pg (26.0-34.0); MCHC 33.7 g/dL (28.0-37.0); MCV 79.2 fL (80.0-100.0); MPV 9.4 fl. (7.2-11.1); NUCLEATED RBCS 0 /100WBC; PLATELET COUNT* 192 thou/uL (150-400); RBC 4.37 mil/uL (4.20-5.00); RDW-CV 14.7 % (10.5-14.5)
[2021-05-22 01:14] LABS: ALBUMIN 2.7 g/dL (3.4-5.0); CALCIUM 8.1 mg/dL (8.5-10.1); MAGNESIUM 1.9 mg/dL (1.8-2.4); POTASSIUM 3.8 mmol/L (3.5-5.1); TOTAL BILIRUBIN 0.8 mg/dL (<0.1-1.0); TOTAL PROTEIN 6.2 g/dL (6.4-8.2)
[2021-05-22 02:12] LABS: ABSOLUTE LYMPHOCYTES 0.5 thou/uL (0.8-5.3); ABSOLUTE MONOCYTES 0.1 thou/uL (0.0-1.2); ABSOLUTE NEUTROPHILS 9.4 thou/uL (1.6-8.1); PLATELET ESTIMATE ADEQUATE
[2021-05-22 02:13] LABS: LARGE PLATELETS OCCASIONAL
[2021-05-22 16:47] LABS: CALCIUM 8.1 mg/dL (8.5-10.1); CREATININE 1.2 mg/dL (0.6-1.3); MAGNESIUM 2.4 mg/dL (1.8-2.4); PHOSPHORUS* 2.6 mg/dL (2.5-4.9); POTASSIUM 3.7 mmol/L (3.5-5.1)
[2021-05-23] VITALS (23 sets, daily range): BP systolic 78–162; BP diastolic 52–98
[2021-05-24] VITALS (23 sets, daily range): BP systolic 119–164; BP diastolic 60–94
[2021-05-24 06:14] LABS: ABSOLUTE LYMPHOCYTES 0.2 thou/uL (0.8-5.3); ABSOLUTE MONOCYTES 0.3 thou/uL (0.0-1.2); NUCLEATED RBCS 0 /100WBC; POLYS 94.5 %; WBC 8.5 thou/uL (4.0-11.0)
[2021-05-24 06:16] LABS: HEMATOCRIT 30.9 % (37.0-47.0); HEMOGLOBIN 10.4 gm/dL (12.0-15.0); LYMPHOCYTES 1.9 %; MCH 26.9 pg (26.0-34.0); MCHC 33.5 g/dL (28.0-37.0); MCV 80.2 fL (80.0-100.0); MONOCYTES 3.6 %; MPV 9.3 fl. (7.2-11.1); PLATELET COUNT* 188 thou/uL (150-400); RBC 3.86 mil/uL (4.20-5.00); RDW-CV 14.7 % (10.5-14.5)
[2021-05-24 06:30] LABS: ALBUMIN 2.5 g/dL (3.4-5.0); CALCIUM 7.8 mg/dL (8.5-10.1); CREATININE 0.9 mg/dL (0.6-1.3); MAGNESIUM 2.2 mg/dL (1.8-2.4); POTASSIUM 3.6 mmol/L (3.5-5.1); TOTAL BILIRUBIN 0.7 mg/dL (<0.1-1.0)
[2021-05-24 17:24] LABS: CALCIUM 8.3 mg/dL (8.5-10.1); CREATININE 1.2 mg/dL (0.6-1.3); POTASSIUM 4.4 mmol/L (3.5-5.1)
[2021-05-25] VITALS (23 sets, daily range): BP systolic 104–163; BP diastolic 55–97
[2021-05-25 06:15] LABS: ABSOLUTE LYMPHOCYTES 0.1 thou/uL (0.8-5.3); NUCLEATED RBCS 0 /100WBC; RDW-CV 14.8 % (10.5-14.5)
[2021-05-25 06:17] LABS: ABSOLUTE MONOCYTES 0.2 thou/uL (0.0-1.2); ABSOLUTE NEUTROPHILS 7.2 thou/uL (1.6-8.1); BASOPHILS 0.1 %; HEMATOCRIT 32.3 % (37.0-47.0); HEMOGLOBIN 10.7 gm/dL (12.0-15.0); LYMPHOCYTES 1.7 %; MCH 26.4 pg (26.0-34.0); MCV 79.9 fL (80.0-100.0); MONOCYTES 2.8 %; PLATELET COUNT* 193 thou/uL (150-400); POLYS 95.4 %; RBC 4.05 mil/uL (4.20-5.00); WBC 7.5 thou/uL (4.0-11.0)
[2021-05-25 06:33] LABS: ALBUMIN 2.5 g/dL (3.4-5.0); CREATININE 1.1 mg/dL (0.6-1.3); MAGNESIUM 2.3 mg/dL (1.8-2.4); TOTAL BILIRUBIN 0.7 mg/dL (<0.1-1.0); TOTAL PROTEIN 6.2 g/dL (6.4-8.2)
[2021-05-26] VITALS (18 sets, daily range): BP systolic 69–161; BP diastolic 39–89
[2021-05-26 04:16] LABS: HEMATOCRIT 31.9 % (37.0-47.0); HEMOGLOBIN 10.6 gm/dL (12.0-15.0); MCH 26.4 pg (26.0-34.0); MCHC 33.1 g/dL (28.0-37.0); MCV 79.9 fL (80.0-100.0); MPV 8.9 fl. (7.2-11.1); RBC 3.99 mil/uL (4.20-5.00); RDW-CV 14.9 % (10.5-14.5)
[2021-05-26 04:31] LABS: CALCIUM 8.1 mg/dL (8.5-10.1); CREATININE 0.9 mg/dL (0.6-1.3)
[2021-05-27] VITALS (21 sets, daily range): BP systolic 87–165; BP diastolic 41–87
[2021-05-27 06:19] LABS: HEMATOCRIT 31.8 % (37.0-47.0); HEMOGLOBIN 10.5 gm/dL (12.0-15.0); MCH 26.7 pg (26.0-34.0); MCHC 32.9 g/dL (28.0-37.0); MCV 81.1 fL (80.0-100.0); MPV 8.8 fl. (7.2-11.1); RBC 3.92 mil/uL (4.20-5.00); RDW-CV 14.8 % (10.5-14.5)
[2021-05-27 06:27] LABS: CALCIUM 7.8 mg/dL (8.5-10.1); CREATININE 0.9 mg/dL (0.6-1.3); POTASSIUM 3.9 mmol/L (3.5-5.1)
--- NOTE | 2021-05-27 14:28 | 2DMMODE ---
[place] [address] 2 D/M-MODE ECHOCARDIOGRAM Name: DANNY COURTNEY Room: [address] ADM IN ..#: [id number] Admission: 05/19/21 Attend Phys: Taqueria Troncoso Discharge: Date of : 34 Date of Service: 05/27/21 1428 Report #: [id number] THIS REPORT FOR: cc: Eve Mcallister Tonja K FNP Holkins, John M. MD [facility] ~ APPROVED REPORT Study performed: 05/27/2021 11:10:04 EXAM: Comprehensive 2D, Doppler, and color-flow Echocardiogram Patient Location: In-Patient Room #: 001 Status: routine BSA: 1.98 HR: 72 bpm BP: 163/84 mmHg Rhythm: NSR Other Information Study Quality: Good Indications Congestive Heart Failure 2D Dimensions IVSd: 12.55 (7-11mm) LVOT Diam: 21.22 (18-24mm) LVDd: 56.42 mm PWd: 11.62 (7-11mm) Ascending Ao: 34.64 (22-36mm) LVDs: 46.20 (25-40mm) Aortic Root: 35.30 mm Volumes Left Atrial Volume (Systole) LA ESV Index: 46.80 mL/m2 Aortic Valve AoV Peak Ajit.: 1.13 m/s AO Peak Gr.: 5.09 mmHg LVOT Max P.66 mmHg AO Mean Gr.: 2.94 mmHg LVOT Mean P.73 mmHg LVOT Max V: 0.64 m/s AO V2 VTI: 25.96 cm LVOT Mean V: 0.39 m/s COSTA (VTI): 1.72 cm2 LVOT V1 VTI: 12.65 [place] [address] 2 D/M-MODE ECHOCARDIOGRAM Name: DANNY COURTNEY Room: [address] IN [facility].#: [id number] Admission: 05/19/21 Attend Phys: Taqueria Troncoso Discharge: Date of : 34 Date of Service: 05/27/21 1428 Report #: [id number] Mitral Valve E/A Ratio: 1.10 MV Decel. Time: 128.46 ms MV E Max Ajit.: 0.78 m/s MV PHT: 37.25 ms MVA (PHT): 5.91 cm2 TDI E/Lateral E': 11.14 Lateral E' Ajit.: 0.07 m/s Pulmonary Valve PV Peak Ajit.: 0.57 m/s PV Peak Gr.: 1.29 mmHg Tricuspid Valve RAP Estimate: 5.00 mmHg TR Peak Gr.: 47.86 mmHg RVSP: 52.00 mmHg PA Pressure: 52.00 mmHg Left Ventricle Left ventricle is mildly dilated. Regional wall motion abnormalities are noted with distal septal and apical akinesis. Borderline concentric left ventricular hypertrophy. Left ventricular systolic function is moderate to severely decreased. LVEF is 25%. This study is not technically sufficient to allow evaluation of the LV diastolic function. Right Ventricle The right ventricle is normal size. The right ventricular systolic function is normal. Atria Left atrium is moderately dilated. The right atrium size is normal. Aortic Valve Mild aortic valve sclerosis. Trace aortic regurgitation. There is no aortic valvular stenosis. Mitral Valve There is mitral annular calcification. Mild to moderate mitral regurgitation. No evidence of mitral valve stenosis. Tricuspid Valve The tricuspid valve is normal in structure. Mild tricuspid regurgitation. Moderate [place] [address] 2 D/M-MODE ECHOCARDIOGRAM Name: DANNY COURTNEY Room: [address]#: [id number] Admission: 05/19/21 Attend Phys: Taqueria Troncoso Discharge: Date of : 34 Date of Service: 05/27/21 1428 Report #: [id number] Pulmonic Valve The pulmonary valve is normal in structure. Mild pulmonic regurgitation. Great Vessels The aortic root is normal in size. IVC is normal in size and collapses >50% with inspiration. Pericardium There is no pericardial effusion. <Conclusion> Left ventricle is mildly dilated. Borderline concentric left ventricular hypertrophy. Left ventricular systolic function is moderate to severely decreased. LVEF is 25%. The right ventricle is normal size. Left atrium is moderately dilated. The right atrium size is normal. Mild aortic valve sclerosis. Trace aortic regurgitation. There is no aortic valvular stenosis. There is mitral annular calcification. Mild to moderate mitral regurgitation. The tricuspid valve is normal in structure. Mild tricuspid regurgitation. Moderate pulmonary hypertension. IVC is normal in size and collapses >50% with inspiration. There is no pericardial effusion. Regional wall motion abnormalities are noted with distal septal and apical akinesis. <ELECTRONICALLY SIGNED> By: Jovan Duran MD, FACC 05/27/21 1428 1428 1428 Jovan Duran MD, FACC /INF
--- NOTE | 2021-05-27 16:22 | CON ---
[address] [address] CONSULTATION Name: DANNY COURTNEY Room: [address] ADM IN M.R.#: [id number] Admission: 05/19/21 Attend Phys: Ge Flores Discharge: Date of : 34 Report #: [id number] THIS REPORT FOR: cc: Eve Mcallister Tonja K FNP Pervez, Adeel MD ~ DATE OF CONSULTATION: 05/20/2021 REQUESTING PHYSICIAN: Anurag Truong MD INDICATION FOR CONSULTATION: Acute hypoxemic respiratory failure secondary to COVID-19. HISTORY OF PRESENT ILLNESS: This is an 89-year-old female with past medical history includes a history of congestive heart failure as well as coronary artery disease. She has recently had coronary artery stent, left ventricular ejection fraction is 35-40%. She is reported to be a lifetime nonsmoker. She has had 2 doses of Pfizer COVID-19 vaccine. She, however, has not had the booster. The patient is now admitted with acute shortness of breath of several days' duration. The patient is reported to be markedly short of breath on initial presentation, unable to talk in full sentences. She has also had nausea and did have vomiting. There is no significant increase in swelling of lower extremities. She is currently not describing upper respiratory complaints. The patient overnight was placed on BiPAP after her nausea and vomiting had subsided. Due to high work of breathing, she was on 40% FiO2 with BiPAP in place overnight. We have switched her over to heated high-flow nasal cannula. Currently, she is saturating in the high 90s. She is on 80% FiO2. The patient answers to the negative for 12 questions for review of systems, except as mentioned above. PAST MEDICAL HISTORY: Coronary artery disease, status post recent coronary artery stent, myocardial infarction in the past, left ventricular ejection fraction on the last echo is 35-40% without elevation in right heart pressures, osteoarthritis, hypertension, hyperlipidemia, hypokalemia, appendectomy, left hand surgery, bone tumor, right foot. SOCIAL HISTORY: Lifetime nonsmoker, does have a history of alcohol use; however, there is no documentation of heavy alcohol use. No known drug use. CURRENT MEDICATIONS: List in [facility] reviewed. HOME MEDICATIONS: List in [facility] [place] [address] CONSULTATION Name: DANNY COURTNEY Room: [address] IN [facility].#: [id number] Admission: 05/19/21 Attend Phys: Ge Flores Discharge: Date of : 34 Report #: [id number] ALLERGIES: VICODIN, LIPITOR AND CELEBREX ARE MENTIONED ALLERGIES. FAMILY HISTORY: No pertinent family history. IMMUNIZATION HISTORY: Two doses of Pfizer COVID-19 vaccine. PHYSICAL EXAMINATION: GENERAL: She is alert, awake and oriented. VITAL SIGNS: Has a pulse of 82 and a blood pressure of 138/79. She is saturating 100%. She is on 80% FiO2 with a heated high-flow nasal cannula in place. Does not appear to be in any distress. Respiratory rate is around 20-22, heart rate is 80, temperature is elevated to 37.8. HEENT: Head is normocephalic and atraumatic. NECK: Does not show raised JVP, asymmetry, mass or lymph nodes. CHEST: Symmetrical expansion on inspection and palpation. On auscultation, breath sounds are bilaterally equal. No added sounds. HEART: Regular. There is no murmur. ABDOMEN: Soft and nontender. EXTREMITIES: Lower extremities show no edema. There is no calf tenderness. There are some varicose veins noted. SKIN: However, is dry and intact. NEUROLOGIC: Moves all extremities bilaterally equally and spontaneously with no focal deficit identified. LABORATORY DATA: The patient's chest x-ray done last night shows florid bilateral infiltrates. There likely is some increase in pulmonary vascular congestion as well. The patient's lab work, which includes a positive COVID-19 antigen in [employer] reviewed. She does have significant bandemia. Lactate was not elevated. D-dimer elevated to 1.17. There is a compensated metabolic acidosis on her arterial blood gas. ASSESSMENT AND PLAN: 1. Acute hypoxemic respiratory failure secondary to COVID-19 and congestive heart failure. We will titrate down FiO2 to O2 saturation in the low 90s, still favor keeping her on a BiPAP while asleep. 2. COVID-19. Continue dexamethasone at 8 mg IV b.i.d. Also, continue remdesivir. We will follow LFTs. I would have evaluated as to whether we should give her Actemra; however, we do not have it available. The patient has had 2 doses of Pfizer and therefore the possibility that she may have an inadequate immune response to COVID-19 needs to be considered and therefore convalescent plasma is also a consideration. I did discuss with the patient, she is agreeable to proceed if we recommend it, also see how she responds to titrating down FiO2 and we are also diuresing her if her oxygen needs remain [address] [address] CONSULTATION Name: DANNY COURTNEY Room: [address] IN [place]#: [id number] Admission: 05/19/21 Attend Phys: Ge Flores Discharge: Date of : 34 Report #: [id number] high, then I will be inclined to give her convalescent plasma. 3. Pulmonary infiltrates. I agree with cefepime and Zyvox. She is saturating 100% and appears to be significantly better than where we were yesterday; therefore, I did not add additional antibiotics at this time. Should she fail to improve, I will have a low threshold of adding atypical coverage as well. Check nasal swab for MRSA, sputum culture. 4. Acute on chronic systolic congestive heart failure, received 40 of Lasix earlier today. We will see how she does; however, tentatively I am planning to give her another dose of Lasix later this afternoon. From a blood pressure and BUN and creatinine point of view, she should be able to tolerate. She is currently on a beta-donita. She is also on losartan. We will watch blood pressure closely. If needed to continue diuresis, then we will cut back on her losartan dose. 5. Evaluation for thromboembolic phenomena/elevated D-dimer. My suspicion of thromboembolism is not high. She does need diuresis; therefore, she will be higher than average risk for contrast nephropathy. I decided to hold off on CTA chest for now, would do venous Dopplers. We will also see how she responds to other therapy as above. If doubt remains in this regard, then I would consider obtaining a limited echo tomorrow to assess the right heart. 6. Deep venous thrombosis prophylaxis, is on Lovenox. 7. Gastrointestinal prophylaxis, Protonix. 8. Clostridium difficile prophylaxis, Lactinex. 9. Hypomagnesemia. We will replace. 10. Mild hyperglycemia, insulin sliding scale. 11. History of coronary artery disease, status post recent stent. The patient is critically ill at this time. Total time spent providing critical care to this patient today exceeds 42 minutes. <ELECTRONICALLY SIGNED> By: Vicente Baca MD 05/27/21 1622 1219 [id number] Baca MD /nt
[2021-05-28] VITALS: BP 148/74
[2021-05-28 04:30] VITALS: BP 140/67
[2021-05-28 04:56] LABS: HEMATOCRIT 30.7 % (37.0-47.0); HEMOGLOBIN 10.4 gm/dL (12.0-15.0); MCH 26.8 pg (26.0-34.0); MCHC 33.8 g/dL (28.0-37.0); MCV 79.2 fL (80.0-100.0); MPV 8.6 fl. (7.2-11.1); RBC 3.87 mil/uL (4.20-5.00); RDW-CV 14.1 % (10.5-14.5); WBC 6.8 thou/uL (4.0-11.0)
[2021-05-28 05:09] LABS: CALCIUM 7.8 mg/dL (8.5-10.1); CREATININE 0.8 mg/dL (0.6-1.3)
[2021-05-28 07:40] VITALS: BP 132/72
[2021-05-28 12:00] VITALS: BP 135/61
[2021-05-28 16:00] VITALS: BP 133/82
[2021-05-28 20:00] VITALS: BP 153/85
[2021-05-29 00:22] VITALS: BP 143/76
[2021-05-29 04:28] VITALS: BP 137/71
[2021-05-29 05:33] LABS: HEMATOCRIT 31.1 % (37.0-47.0); HEMOGLOBIN 10.3 gm/dL (12.0-15.0); MCH 26.3 pg (26.0-34.0); MCHC 33.2 g/dL (28.0-37.0); MCV 79.1 fL (80.0-100.0); MPV 8.7 fl. (7.2-11.1); NUCLEATED RBCS 0 /100WBC; PLATELET COUNT* 173 thou/uL (150-400); RBC 3.94 mil/uL (4.20-5.00); RDW-CV 14.6 % (10.5-14.5); WBC 11.8 thou/uL (4.0-11.0)
[2021-05-29 05:43] LABS: CALCIUM 7.7 mg/dL (8.5-10.1); CREATININE 0.6 mg/dL (0.6-1.3); POTASSIUM 3.4 mmol/L (3.5-5.1)
[2021-05-29 07:27] LABS: ABSOLUTE LYMPHOCYTES 0.6 thou/uL (0.8-5.3); ABSOLUTE MONOCYTES 0.7 thou/uL (0.0-1.2); ABSOLUTE NEUTROPHILS 10.5 thou/uL (1.6-8.1)
[2021-05-29 07:28] LABS: PLATELET ESTIMATE ADEQUATE
[2021-05-29 07:45] VITALS: BP 137/55
[2021-05-29 12:00] VITALS: BP 129/77
[2021-05-29 13:34] LABS: CALCIUM 7.8 mg/dL (8.5-10.1)
[2021-05-29 13:41] LABS: POTASSIUM 4.6 mmol/L (3.5-5.1)
[2021-05-29 16:00] VITALS: BP 131/69
[2021-05-29 20:00] VITALS: BP 108/63
[2021-05-30 00:51] VITALS: BP 134/65
[2021-05-30 04:26] VITALS: BP 106/60
[2021-05-30 08:00] VITALS: BP 121/60
[2021-05-30 12:42] VITALS: BP 115/57
[2021-05-30 16:49] VITALS: BP 130/63
[2021-05-30 20:00] VITALS: BP 115/79
[2021-05-31] VITALS: BP 123/77
[2021-05-31 04:00] VITALS: BP 125/76
[2021-05-31 07:12] LABS: HEMATOCRIT 32.1 % (37.0-47.0); HEMOGLOBIN 10.7 gm/dL (12.0-15.0); MCH 26.6 pg (26.0-34.0); MCHC 33.4 g/dL (28.0-37.0); MCV 79.7 fL (80.0-100.0); MPV 8.4 fl. (7.2-11.1); RBC 4.03 mil/uL (4.20-5.00); RDW-CV 14.8 % (10.5-14.5)
[2021-05-31 07:34] LABS: ALBUMIN 2.4 g/dL (3.4-5.0); CREATININE 0.9 mg/dL (0.6-1.3); MAGNESIUM 1.9 mg/dL (1.8-2.4); POTASSIUM 3.9 mmol/L (3.5-5.1); TOTAL BILIRUBIN 1.1 mg/dL (<0.1-1.0); TOTAL PROTEIN 5.6 g/dL (6.4-8.2)
[2021-05-31 09:05] VITALS: BP 108/66
[2021-05-31 12:00] VITALS: BP 89/48
[2021-05-31 20:00] VITALS: BP 121/72
[2021-06-01] VITALS: BP 123/66
[2021-06-01 04:00] VITALS: BP 130/60
[2021-06-01 07:20] LABS: HEMATOCRIT 29.5 % (37.0-47.0); HEMOGLOBIN 9.9 gm/dL (12.0-15.0); MCH 26.7 pg (26.0-34.0); MCHC 33.6 g/dL (28.0-37.0); MCV 79.5 fL (80.0-100.0); MPV 8.7 fl. (7.2-11.1); RBC 3.71 mil/uL (4.20-5.00); RDW-CV 14.6 % (10.5-14.5)
[2021-06-01 07:35] LABS: ALBUMIN 2.3 g/dL (3.4-5.0); CALCIUM 8.2 mg/dL (8.5-10.1); MAGNESIUM 1.9 mg/dL (1.8-2.4); TOTAL BILIRUBIN 0.9 mg/dL (<0.1-1.0); TOTAL PROTEIN 5.4 g/dL (6.4-8.2)
[2021-06-01 08:00] VITALS: BP 129/79
[2021-06-01 11:55] VITALS: BP 103/50
[2021-06-01 15:56] VITALS: BP 104/58
[2021-06-01 20:00] VITALS: BP 118/64
[2021-06-02] VITALS: BP 136/76
[2021-06-02 04:00] VITALS: BP 148/67
[2021-06-02 05:29] LABS: HEMATOCRIT 30.2 % (37.0-47.0); HEMOGLOBIN 10.3 gm/dL (12.0-15.0); MCH 26.9 pg (26.0-34.0); MCV 78.9 fL (80.0-100.0); MPV 8.6 fl. (7.2-11.1); RBC 3.82 mil/uL (4.20-5.00); RDW-CV 14.9 % (10.5-14.5); WBC 10.6 thou/uL (4.0-11.0)
[2021-06-02 05:42] LABS: ALBUMIN 2.4 g/dL (3.4-5.0); CALCIUM 8.1 mg/dL (8.5-10.1); POTASSIUM 3.8 mmol/L (3.5-5.1); TOTAL BILIRUBIN 0.9 mg/dL (<0.1-1.0); TOTAL PROTEIN 5.7 g/dL (6.4-8.2)
[2021-06-02 07:47] VITALS: BP 134/78
[2021-06-02 11:35] VITALS: BP 124/69
[2021-06-02 16:05] VITALS: BP 92/73
[2021-06-02 20:05] VITALS: BP 107/62
[2021-06-03] VITALS (8 sets, daily range): BP systolic 93–125; BP diastolic 49–73
[2021-06-03 04:59] LABS: HEMATOCRIT 28.1 % (37.0-47.0); HEMOGLOBIN 9.6 gm/dL (12.0-15.0); MCH 26.8 pg (26.0-34.0); MCV 78.7 fL (80.0-100.0); MPV 10.2 fl. (7.2-11.1); RBC 3.57 mil/uL (4.20-5.00); RDW-CV 14.7 % (10.5-14.5); WBC 9.9 thou/uL (4.0-11.0)
[2021-06-03 05:09] LABS: CREATININE 1.2 mg/dL (0.6-1.3); MAGNESIUM 2.1 mg/dL (1.8-2.4); POTASSIUM 4.1 mmol/L (3.5-5.1)
[2021-06-04 04:28] VITALS: BP 106/58
[2021-06-04 05:00] LABS: HEMATOCRIT 31.4 % (37.0-47.0); HEMOGLOBIN 10.3 gm/dL (12.0-15.0); MCH 26.4 pg (26.0-34.0); MCHC 32.8 g/dL (28.0-37.0); MCV 80.5 fL (80.0-100.0); RBC 3.9 mil/uL (4.20-5.00); RDW-CV 14.3 % (10.5-14.5)
[2021-06-04 05:10] LABS: ALBUMIN 2.5 g/dL (3.4-5.0); CALCIUM 8.1 mg/dL (8.5-10.1); CREATININE 1.2 mg/dL (0.6-1.3); MAGNESIUM 2.2 mg/dL (1.8-2.4); POTASSIUM 4.3 mmol/L (3.5-5.1); TOTAL BILIRUBIN 0.9 mg/dL (<0.1-1.0); TOTAL PROTEIN 5.9 g/dL (6.4-8.2)
[2021-06-04 08:00] VITALS: BP 125/65
[2021-06-04 12:28] VITALS: BP 120/63
[2021-06-04 16:21] LABS: CALCIUM 8.4 mg/dL (8.5-10.1); CREATININE 1.2 mg/dL (0.6-1.3); POTASSIUM 4.5 mmol/L (3.5-5.1)
[2021-06-04 17:05] VITALS: BP 116/65
[2021-06-04 20:00] VITALS: BP 125/59
[2021-06-05] VITALS (7 sets, daily range): BP systolic 83–121; BP diastolic 49–64
[2021-06-05 05:12] LABS: HEMATOCRIT 29.5 % (37.0-47.0); HEMOGLOBIN 9.7 gm/dL (12.0-15.0); MCH 26.5 pg (26.0-34.0); MCHC 32.9 g/dL (28.0-37.0); MCV 80.7 fL (80.0-100.0); MPV 9.7 fl. (7.2-11.1); RBC 3.65 mil/uL (4.20-5.00); RDW-CV 14.9 % (10.5-14.5); WBC 11.5 thou/uL (4.0-11.0)
[2021-06-05 05:39] LABS: ALBUMIN 2.4 g/dL (3.4-5.0); CALCIUM 8.3 mg/dL (8.5-10.1); CREATININE 1.1 mg/dL (0.6-1.3); MAGNESIUM 2.3 mg/dL (1.8-2.4); POTASSIUM 4.2 mmol/L (3.5-5.1); TOTAL BILIRUBIN 0.9 mg/dL (<0.1-1.0); TOTAL PROTEIN 5.5 g/dL (6.4-8.2)
--- NOTE | 2021-06-05 13:25 | EKG ---
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 : 1930 Requested By: Sahil Robertson Order Number: [id number] Reading MD: Eduardo Courtney Measurements Intervals [place] Rate: 68 P: 31 WV: 187 QRS: -34 QRSD: 106 T: 146 QT: 403 QTc: 429 Interpretive Statements Sinus rhythm Probable left atrial enlargement LVH with secondary repolarization abnormality Inferior infarct, old Anterolateral infarct, age indeterminate Compared to ECG 05/19/2021 22:02:43 Sinus tachycardia no longer present Ventricular premature complex(es) no longer present Myocardial infarct finding still present Electronically Signed On 06-05-2021 13:25:04 [employer]IL WR[employer]PER by Eduardo Courtney [email or web address] <ELECTRONICALLY SIGNED> By: Eduardo Courtney MD, [facility] 06/05/21 1325 16 Eduardo Courtney MD, [facility] /EPI
[2021-06-06 03:50] VITALS: BP 135/73
[2021-06-06 04:08] LABS: HEMATOCRIT 30.4 % (37.0-47.0); HEMOGLOBIN 10.2 gm/dL (12.0-15.0); MCH 26.8 pg (26.0-34.0); MCHC 33.5 g/dL (28.0-37.0); MCV 80.2 fL (80.0-100.0); MPV 8.6 fl. (7.2-11.1); RBC 3.79 mil/uL (4.20-5.00); RDW-CV 14.8 % (10.5-14.5); WBC 7.3 thou/uL (4.0-11.0)
[2021-06-06 04:54] LABS: CALCIUM 8.1 mg/dL (8.5-10.1); CREATININE 1.2 mg/dL (0.6-1.3); MAGNESIUM 2.3 mg/dL (1.8-2.4); POTASSIUM 4.5 mmol/L (3.5-5.1)
[2021-06-06 08:00] VITALS: BP 146/77
[2021-06-06 12:57] VITALS: BP 108/60
[2021-06-06 15:35] VITALS: BP 114/57
[2021-06-06 19:56] VITALS: BP 110/64
[2021-06-07] VITALS: BP 119/72
[2021-06-07 04:00] VITALS: BP 100/48
[2021-06-07 04:35] LABS: HEMATOCRIT 30.2 % (37.0-47.0); HEMOGLOBIN 10.1 gm/dL (12.0-15.0); MCH 26.8 pg (26.0-34.0); MCHC 33.5 g/dL (28.0-37.0); MCV 80.1 fL (80.0-100.0); MPV 9.2 fl. (7.2-11.1); RBC 3.78 mil/uL (4.20-5.00); RDW-CV 14.7 % (10.5-14.5)
[2021-06-07 04:55] LABS: CALCIUM 8.2 mg/dL (8.5-10.1); CREATININE 1.4 mg/dL (0.6-1.3); MAGNESIUM 2.4 mg/dL (1.8-2.4); POTASSIUM 4.8 mmol/L (3.5-5.1)
[2021-06-07 08:45] VITALS: BP 115/73
[2021-06-07 14:04] VITALS: BP 102/63
[2021-06-07 16:30] VITALS: BP 121/67
[2021-06-07 20:00] VITALS: BP 120/63
[2021-06-08 00:59] VITALS: BP 113/64
[2021-06-08 06:13] VITALS: BP 94/52
[2021-06-08 08:00] VITALS: BP 82/40
[2021-06-08 12:00] VITALS: BP 86/43
[2021-06-08 15:42] VITALS: BP 99/47
[2021-06-08 20:29] VITALS: BP 117/54
[2021-06-09 01:30] VITALS: BP 116/69
[2021-06-09 05:25] LABS: HEMOGLOBIN 9.9 gm/dL (12.0-15.0)
[2021-06-09 05:37] LABS: HEMATOCRIT 29.7 % (37.0-47.0); MCH 26.8 pg (26.0-34.0); MCHC 33.4 g/dL (28.0-37.0); MCV 80.2 fL (80.0-100.0); MPV 8.8 fl. (7.2-11.1); NUCLEATED RBCS 0 /100WBC; PLATELET COUNT* 104 thou/uL (150-400); WBC 11.7 thou/uL (4.0-11.0)
[2021-06-09 05:52] VITALS: BP 124/79
[2021-06-09 06:05] LABS: ALBUMIN 2.5 g/dL (3.4-5.0); CALCIUM 8.1 mg/dL (8.5-10.1); CREATININE 1.5 mg/dL (0.6-1.3); TOTAL BILIRUBIN 0.8 mg/dL (<0.1-1.0); TOTAL PROTEIN 5.7 g/dL (6.4-8.2)
[2021-06-09 07:36] LABS: HYPOCHROMASIA 1+; PLATELET ESTIMATE DECREASED
[2021-06-09 08:00] VITALS: BP 110/58
[2021-06-09 08:25] LABS: ABSOLUTE LYMPHOCYTES 0.1 thou/uL (0.8-5.3); ABSOLUTE NEUTROPHILS 11.6 thou/uL (1.6-8.1)
[2021-06-09 12:00] VITALS: BP 100/56
[2021-06-09 16:00] VITALS: BP 106/56
[2021-06-09 20:00] VITALS: BP 100/56
[2021-06-10 00:51] VITALS: BP 96/54
[2021-06-10 04:30] VITALS: BP 112/60
[2021-06-10 08:00] VITALS: BP 116/66
[2021-06-10 12:00] VITALS: BP 95/48
[2021-06-10] MEDS ORDERED: LASIX 40 MG TAB40 M2 PO (12:17)
[2021-06-10] MEDS ORDERED: IPRAT-ALBUT 0.5-3 ML INH (12:17)
[2021-06-10] MEDS ORDERED: DEXAMETHASONE1 MG PO (12:17)
[2021-06-10] MEDS ORDERED: PROTONIX40 M2 PO (12:17)
[2021-06-10] MEDS ORDERED: KLOR-CON M2020 MEQ PO (12:17)
[2021-06-10 16:00] VITALS: BP 142/73
[2021-06-10 20:00] VITALS: BP 105/56
[2021-06-11 04:00] VITALS: BP 110/52
[2021-06-11 16:21] VITALS: BP 92/53
== END 2021-06-11 16:45 | DRG 871 ==
LOC: M.ERS 20:45 → M.ICU 23:01 → M.TBA-ER 23:01 → M.ICU 05-20 01:09 → M.ORTHSURG 05-27 18:55 → M.2W 06-03 21:56 → M.3W 06-10 20:17
PROVIDERS: Internal Medicine; Internal Medicine Critical Care Medicine; Personal Emergency Response Attendant; ADMIT Internal Medicine; ATTEND Internal Medicine
PROC: 5A09357 Assistance with Respiratory Ventilation, Less than 24 Consecutive Hours, Continuous Positive Airway Pressure (ICD-10-PCS; principal; 2021-05-19)
PROC: 5A0935A Assistance with Respiratory Ventilation, Less than 24 Consecutive Hours, High Flow/Velocity Cannula (ICD-10-PCS; 2021-05-20)
PROC: XW033E5 Introduction of Remdesivir Anti-infective into Peripheral Vein, Percutaneous Approach, New Technology Group 5 (ICD-10-PCS; 2021-05-20)
PROC: 5A09357 Assistance with Respiratory Ventilation, Less than 24 Consecutive Hours, Continuous Positive Airway Pressure (ICD-10-PCS; 2021-05-21)
PROC: 5A0935A Assistance with Respiratory Ventilation, Less than 24 Consecutive Hours, High Flow/Velocity Cannula (ICD-10-PCS; 2021-05-21)
PROC: 5A0935A Assistance with Respiratory Ventilation, Less than 24 Consecutive Hours, High Flow/Velocity Cannula (ICD-10-PCS; 2021-05-22)
PROC: 05HY33Z Insertion of Infusion Device into Upper Vein, Percutaneous Approach (ICD-10-PCS; 2021-05-22)
PROC: 5A09357 Assistance with Respiratory Ventilation, Less than 24 Consecutive Hours, Continuous Positive Airway Pressure (ICD-10-PCS; 2021-05-23)
PROC: 5A0935A Assistance with Respiratory Ventilation, Less than 24 Consecutive Hours, High Flow/Velocity Cannula (ICD-10-PCS; 2021-05-24)
PROC: 5A0935A Assistance with Respiratory Ventilation, Less than 24 Consecutive Hours, High Flow/Velocity Cannula (ICD-10-PCS; 2021-05-25)
PROC: 5A09357 Assistance with Respiratory Ventilation, Less than 24 Consecutive Hours, Continuous Positive Airway Pressure (ICD-10-PCS; 2021-05-25)
PROC: 5A09357 Assistance with Respiratory Ventilation, Less than 24 Consecutive Hours, Continuous Positive Airway Pressure (ICD-10-PCS; 2021-05-26)
PROC: 5A0935A Assistance with Respiratory Ventilation, Less than 24 Consecutive Hours, High Flow/Velocity Cannula (ICD-10-PCS; 2021-05-26)
PROC: 5A09357 Assistance with Respiratory Ventilation, Less than 24 Consecutive Hours, Continuous Positive Airway Pressure (ICD-10-PCS; 2021-05-27)
PROC: 5A0935A Assistance with Respiratory Ventilation, Less than 24 Consecutive Hours, High Flow/Velocity Cannula (ICD-10-PCS; 2021-05-27)
PROC: 5A0945A Assistance with Respiratory Ventilation, 24-96 Consecutive Hours, High Flow/Velocity Cannula (ICD-10-PCS; 2021-05-28)
PROC: 5A0945A Assistance with Respiratory Ventilation, 24-96 Consecutive Hours, High Flow/Velocity Cannula (ICD-10-PCS; 2021-06-01)
PROC: 5A0935A Assistance with Respiratory Ventilation, Less than 24 Consecutive Hours, High Flow/Velocity Cannula (ICD-10-PCS; 2021-06-04)
PROC: 5A0935A Assistance with Respiratory Ventilation, Less than 24 Consecutive Hours, High Flow/Velocity Cannula (ICD-10-PCS; 2021-06-06)
PROC: 5A0935A Assistance with Respiratory Ventilation, Less than 24 Consecutive Hours, High Flow/Velocity Cannula (ICD-10-PCS; 2021-06-07)
PROC: 5A0935A Assistance with Respiratory Ventilation, Less than 24 Consecutive Hours, High Flow/Velocity Cannula (ICD-10-PCS; 2021-06-10)
DX: A41.89 Other specified sepsis (principal); U07.1 COVID-19; J12.82 Pneumonia due to coronavirus disease 2019; I50.23 Acute on chronic systolic (congestive) heart failure; J80 Acute respiratory distress syndrome; M19.90 Unspecified osteoarthritis, unspecified site; E78.5 Hyperlipidemia, unspecified; I25.10 Atherosclerotic heart disease of native coronary artery without angina pectoris; G47.00 Insomnia, unspecified; I25.5 Ischemic cardiomyopathy; I25.2 Old myocardial infarction; I11.0 Hypertensive heart disease with heart failure; Z90.49 Acquired absence of other specified parts of digestive tract; Z88.8 Allergy status to other drugs, medicaments and biological substances; Z79.82 Long term (current) use of aspirin; Z79.899 Other long term (current) drug therapy